=== PATIENT | female | born 1935 | race Caucasian/White ===

== ENCOUNTER 2021-02-16 17:20 | Inpatient (IN) | payer OTHER, SELFPAY ==
[2021-02-16] VITALS (15 sets, daily range): BP systolic 137–194; BP diastolic 72–79; PULSE 51–63; RESP 14–27; TEMP 36.2; O2SAT 96–100; BMI 25.6
--- NOTE | 2021-02-16 | DI.CT.S_ITS ---
PROCEDURE: CT HEAD/BRAIN WO CON INDICATIONS: Chest pain, Hypertensive urgency, possible CVA TECHNIQUE: Noncontrast 4.5 mm thick angled axial sections acquired from the foramen magnum to the vertex, with coronal and sagittal reformats. For radiation dose reduction, the following was used: automated exposure control, adjustment of mA and/or kV according to patient size. COMPARISON: None. FINDINGS: Image quality: Beam hardening artifact from the patient's left middle cranial fossa aneurysm coil material. CSF spaces: The visualized basal cisterns are patent. Bifrontal prominence of the CSF spaces, which may reflect hygromas. Ventricles are normal in size and shape. Brain: No midline shift. No intracranial masses or hemorrhage. Swartz-white matter interface is normal. Skull and face: Calvarium and visualized facial bones are intact, without suspicious lesions. Sinuses: Visualized sinuses and mastoids are clear. IMPRESSION: No acute intracranial abnormality. Dictated by: Joesph Dominguez M.D. on 02/16/2021 at 21:04 Approved by: Joesph Dominguez M.D. on 02/16/2021 at 21:07
--- NOTE | 2021-02-16 17:25 | DI.RAD.S_ITS ---
PROCEDURE: XR CHEST 1V INDICATIONS: chest pain TECHNIQUE: One view of the chest was acquired. COMPARISON: None. FINDINGS: Surgical changes and devices: None. Lungs and pleura: No consolidation, pleural effusions or pneumothorax. Mediastinum: Mediastinal contours appear normal. Heart size is normal. Bones and chest wall: No suspicious bony lesions. Overlying soft tissues appear unremarkable. IMPRESSION: No acute cardiopulmonary abnormality. Dictated by: Joesph Dominguez M.D. on 02/16/2021 at 17:58 Approved by: Joesph Dominguez M.D. on 02/16/2021 at 17:58
[2021-02-16 17:58] LABS: Add Manual Diff / Slide Review NO; Basophils Absolute Auto 100 /uL (0-100); Basophils Percent Auto 1.3 % (0-2); Eosinophils Absolute Auto 300 /uL (0-450); Hematocrit 36.6 % (36-46); Hemoglobin 12.3 g/dL (12.0-16.0); Lymphocytes Absolute Auto 1800 /uL (1100-4500); Lymphocytes Percent Auto 33.6 % (25-40); Mean Corpuscular HGB Conc 33.6 % (30-36); Mean Corpuscular Hemoglobin 31.4 PG (26-34); Mean Corpuscular Volume 93.7 fL (80-100); Monocytes Absolute Auto 400 /uL (0-900); Monocytes Percent Auto 7.3 % (3-14); Neutrophils Absolute Auto 2900 /uL (1500-7000); Neutrophils Percent Auto 52.8 % (50-75); Platelet Count 207 X10^3/uL (150-400); Prothrombin Time 10.7 SECONDS (10.1-12.7); Red Blood Cell Count 3.91 X10^6/uL (4.0-5.2); Red Cell Distribution Width 13.1 % (11.6-14.8); White Blood Cell Count 5.4 X10^3/uL (4.5-11.0)
[2021-02-16 18:01] LABS: PTT Partial Thromboplastin Tim 30 SECONDS (26.4-36.2)
[2021-02-16 18:03] LABS: Alanine Aminotransferase 11 IU/L (<35); Albumin 4.2 g/dL (3.5-5.0); Albumin Globulin Ratio 1.4 (1.0-2.8); Alkaline Phosphatase 69 U/L (38-126); Aspartate Aminotransferase 26 IU/L (14-36); BUN Creatinine Ratio 19.1 (6-22); Bilirubin Total 0.6 mg/dL (0.2-1.3); Blood Urea Nitrogen 18 mg/dL (7-17); Calcium 9.3 mg/dL (8.4-10.2); Carbon Dioxide 27 mmol/L (22-32); Chloride 103 mmol/L (98-107); Creatine Kinase 76 U/L (30-135); Estimated Glomerular Filt Rate 56.6 mL/min (>60); Globulin 2.9 g/dL (1.7-4.1); Glucose 102 mg/dL (80-110); HEMOLYSIS < 15 (0-50); Lipase 131 U/L (23-300); Potassium 4.5 mmol/L (3.4-5.1); Sodium 135 mmol/L (137-145); Total Protein 7.1 g/dL (6.3-8.2)
[2021-02-16 18:15] LABS: NT-proBNP (BNP-Adult 18+) 464 pg/mL (<450); Troponin I < 0.012 ng/mL (0.01-0.034)
--- NOTE | 2021-02-16 18:40 | ED_ITS ---
HPI - Chest Pain General Chief Complaint: Chest Pain Stated Complaint: chest pain, LT arm hurts Time Seen by Provider: 02/16/21 18:31 Source: patient Mode of arrival: Ambulatory History of Present Illness HPI narrative: Patient here with granddaughter. Complaints 2 days off and on substernal chest pressure pain with left arm discomfort. Has had diaphoresis and dyspnea. Not had stress test echocardiogram over 5 years. No previous history of coronary disease. Past history of atrial fibrillation with Coumadin use however has not been on it for many years. Primary care had taken her off of it and placed her on aspirin 325 mg daily. She did take it this morning. Currently no chest pain. Seen by primary care yesterday for left arm discomfort but no chest pain yesterday. Had today off and on. Blood pressure noted. No high blood pressure history in the past. Patient gets very tired and winded when walking and exerting. Related Data Home Medications Medication Instructions Recorded Confirmed aspirin 325 mg tablet 325 mg PO DAILY 02/17/21 02/17/21 polyethylene glycol 3350 17 See Rx Instructions .ROUTE .COMPLEX 02/17/21 02/17/21 gram/dose oral powder (Miralax) Allergies Allergy/AdvReac Type Severity Reaction Status Date / Time Any pain medicine Allergy Uncoded 02/16/21 17:28 codiene AdvReac Mild Vomiting Uncoded 02/16/21 21:01 Review of Systems Review of Systems Narrative: GENERAL: Denies chills, fatigue, malaise, fever, positive sweats. HEENT: Denies sinus pain, ear pain, sore throat RESPIRATORY: Positive dyspnea, negative cough CARDIOVASCULAR: Positive forchest pain, negative palpitations GASTROINTESTINAL: Denies nausea, vomiting, abdominal pain : Denies dysuria, frequency, hematuria MUSCULOSKELETAL: denies muscle or bony pain SKIN: Denies rash, skin lesions NEUROLOGIC: Denies weakness, numbness ROS Unobtainable: All systems reviewed & are unremarkable except as noted in HPI and below Patient History Medical History (Updated 02/16/21 @ 20:39 by CAITLYN Wiggins) Brain aneurysm History of atrial fibrillation History of hyperlipidemia History of hypertension History of myocardial infarction History of pulmonary embolus (PE) Surgical History (Updated 02/16/21 @ 20:38 by CAITLYN Wiggins) History of cholecystectomy History of knee replacement 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 EYES: Pupils equal round No scleral icterus. ENT: Mucous membranes moist. NECK: Trachea midline. CARDIOVASCULAR: Regular rate and rhythm without murmurs RESPIRATORY: Clear to auscultation. Breath sounds equal bilaterally. No wheezes, rales, or rhonchi. GASTROINTESTINAL: Abdomen soft, non-tender EXTREMITIES: No gross deformities. BACK: No flank tenderness. NEURO: AOx4. SKIN: Warm and dry PSYCH: Not anxious, is cooperative Initial Vital Signs Initial Vital Signs: Vital Signs Temperature 97.1 F L 02/16/21 17:25 Pulse Rate 63 02/16/21 17:25 Respiratory Rate 20 02/16/21 17:25 Blood Pressure 194/79 H 02/16/21 17:25 Pulse Oximetry 98 02/16/21 17:25 Course Course Course Narrative: No new issues during course of stay Decision to Admit Date: 02/16/21 Decision to Admit time: 18:44 Orders Ordered: ED Orders 02/16/21 17:25 XR chest 1V Stat EKG-12 Lead Stat 02/16/21 17:35 BNP [NT-proBNP (BNP-Adult 18+)] Stat Complete Blood Count AUTO DIFF Stat Comprehensive Metabolic Panel Stat Lipase Stat Magnesium Stat Partial Thromboplastin Time Stat Prothrombin Time INR Stat TSH w/ Reflex to FT4 Urgent Troponin & CK Cardiac Panel Stat 02/16/21 19:08 COVID19 - ADMIT ([employer] swab/PCR) Stat 02/16/21 19:45 EC echo doppler complete Urgent NM fernanda perf SPECT rest & str Urgent Troponin I Q8H 02/16/21 19:46 Education, smoking cessation ONGOING 02/16/21 20:17 MR stroke Stat Education, smoking cessation ONGOING 02/16/21 20:19 Consult to Physical Therapy Evaluate & Treat 02/16/21 20:45 Urinalysis and Microscopic Stat Urine Culture Stat 02/17/21 03:45 Troponin I Q8H 02/17/21 05:00 Lipid Panel Routine NT-proBNP (BNP-Adult 18+) Routine Prothrombin Time INR Routine Acetaminophen (Acetaminophen 325 Mg Tablet) 650 mg PO Q6HR PRN PRN Reason: Fever/Mild Pain (1-3) Aspirin (Aspirin Ec 81 Mg Tablet) 81 mg PO DAILY [facility] Atorvastatin Calcium (Atorvastatin 20 Mg Tablet) 80 mg PO BEDTIME [facility] Last Admin: 02/16/21 21:13 Dose: 80 mg Documented by: MOSES Clopidogrel Bisulfate (Clopidogrel 75 Mg Tablet) 75 mg PO DAILY [facility] Enoxaparin Sodium (Enoxaparin 40 Mg/0.4 Ml Syringe) 40 mg SUBCUT DAILY [facility] Lactated Ringer's (Lactated Ringers) 1,000 mls @ 60 mls/hr IV CONT [facility] Last Admin: 02/16/21 21:13 Dose: 60 mls/hr Documented by: MOSES Ceftriaxone Sodium 1,000 mg/ (Sodium Chloride) 100 mls @ 200 mls/hr IV Q24H [facility] Lisinopril (Lisinopril 10 Mg Tablet) 10 mg PO DAILY [facility] Morphine Sulfate (Morphine 2 Mg/Ml Inj) 2 mg IV Q5MIN PRN PRN Reason: Chest Pain Naloxone HCl (Naloxone 0.4 Mg/Ml Vial) 0.2 mg IV Q2MIN PRN PRN Reason: Opiate Reversal Nitroglycerin (Nitroglycerin 0.4 Mg Sl Tab) 0.4 mg SL [id number] PRN PRN Reason: Chest Pain Discontinued Medications Ceftriaxone Sodium 2,000 mg/ (Sodium Chloride) 100 mls @ 200 mls/hr IV NOW ONE Stop: 02/16/21 22:44 Last Admin: 02/17/21 00:05 Dose: 200 mls/hr Documented by: HE Nitroglycerin (Nitroglycerin Oint 1 Inch/Gm Oint...G.) 0.5 inch TOP NOW ONE Stop: 02/16/21 18:41 Last Admin: 02/16/21 19:17 Dose: 0.5 inch Documented by: SUSAN Reevaluation(s) Reevaluation #1: Patient and granddaughter understand and agree for admit. Currently no chest pain. Time: 18:44 Consultations Consultation #1: Spoke with hospitalist, Julienne Russell, will admit Time: 19:42 Vital Signs Vital signs: Vital Signs - 8 hr 02/16/21 18:31 02/16/21 19:00 02/16/21 19:01 Pulse Rate 54 L 53 L 53 L Respiratory Rate 24 24 24 Blood Pressure 181/79 H Pulse Oximetry 99 99 99 02/16/21 19:17 02/16/21 19:30 02/16/21 19:31 Pulse Rate 51 L 51 L 51 L Respiratory Rate 17 27 H Blood Pressure 181/79 H 172/73 H Pulse Oximetry 97 100 02/16/21 20:00 02/16/21 20:30 02/16/21 20:31 Pulse Rate 54 L 53 L 54 L Respiratory Rate 22 20 24 Blood Pressure 174/78 H 169/74 H Pulse Oximetry 98 97 98 MDM - Chest Pain Differential Diagnosis Differential diagnosis: Likely stable angina, unstable angina pectoris, atypical chest pain and chest pain Lab Data Result diagrams: 02/16/21 17:35 02/16/21 17:35 Labs: Lab Results 02/16/21 02/16/21 02/16/21 Range/Units 17:35 17:35 17:35 WBC 5.4 (4.5-11.0) X10^3/uL RBC 3.91 L (4.0-5.2) X10^6/uL Hgb 12.3 (12.0-16.0) g/dL Hct 36.6 (36-46) % MCV 93.7 (80-100) fL MCH 31.4 (26-34) PG MCHC 33.6 (30-36) % RDW 13.1 (11.6-14.8) % Plt Count 207 (150-400) X10^3/uL Neut % (Auto) 52.8 (50-75) % Lymph % (Auto) 33.6 (25-40) % [place] % (Auto) 7.3 (3-14) % Eos % (Auto) 5.0 H (2-4) % Baso % (Auto) 1.3 (0-2) % Neut # (Auto) 2900 (9210-7872) /uL Lymph # (Auto) 1800 (2092-6622) /uL [place] # (Auto) 400 (0-900) /uL Eos # (Auto) 300 (0-450) /uL Baso # (Auto) 100 (0-100) /uL PT 10.7 (10.1-12.7) SECONDS INR 1.0 (0.9-1.3) APTT 30 (26.4-36.2) SECONDS D-Dimer (<230) ng/mL Sodium 135 L (137-145) mmol/L Potassium 4.5 (3.4-5.1) mmol/L Chloride 103 (98-107) mmol/L Carbon Dioxide 27 (22-32) mmol/L BUN 18 H (7-17) mg/dL Creatinine 0.94 (0.52-1.04) mg/dL Estimated GFR 56.6 L (>60) mL/min BUN/Creatinine Ratio 19.1 (6-22) Glucose 102 (80-110) mg/dL Calcium 9.3 (8.4-10.2) mg/dL Magnesium 2.0 (1.6-2.3) mg/dL Total Bilirubin 0.6 (0.2-1.3) mg/dL AST 26 (14-36) IU/L ALT 11 (<35) IU/L Alkaline Phosphatase 69 (38-126) U/L Total Creatine Kinase 76 (30-135) U/L CK-MB (CK-2) TNP CK-MB (CK-2) Rel Index TNP Troponin I < 0.012 (0.01-0.034) ng/mL NT-Pro-B Natriuret Pep 464 H (<450) pg/mL Total Protein 7.1 (6.3-8.2) g/dL Albumin 4.2 (3.5-5.0) g/dL Globulin 2.9 (1.7-4.1) g/dL Albumin/Globulin Ratio 1.4 (1.0-2.8) Lipase 131 (23-300) U/L TSH (0.47-4.68) uIU/mL SARS-CoV-2 (PCR) (Negative) 02/16/21 02/16/21 02/16/21 Range/Units 17:35 17:35 19:08 WBC (4.5-11.0) X10^3/uL RBC (4.0-5.2) X10^6/uL Hgb (12.0-16.0) g/dL Hct (36-46) % MCV (80-100) fL MCH (26-34) PG MCHC (30-36) % RDW (11.6-14.8) % Plt Count (150-400) X10^3/uL Neut % (Auto) (50-75) % Lymph % (Auto) (25-40) % [place] % (Auto) (3-14) % Eos % (Auto) (2-4) % Baso % (Auto) (0-2) % Neut # (Auto) (2737-2251) /uL Lymph # (Auto) (5997-5802) /uL [place] # (Auto) (0-900) /uL Eos # (Auto) (0-450) /uL Baso # (Auto) (0-100) /uL PT (10.1-12.7) SECONDS INR (0.9-1.3) APTT (26.4-36.2) SECONDS D-Dimer 558 H (<230) ng/mL Sodium (137-145) mmol/L Potassium (3.4-5.1) mmol/L Chloride (98-107) mmol/L Carbon Dioxide (22-32) mmol/L BUN (7-17) mg/dL Creatinine (0.52-1.04) mg/dL Estimated GFR (>60) mL/min BUN/Creatinine Ratio (6-22) Glucose (80-110) mg/dL Calcium (8.4-10.2) mg/dL Magnesium (1.6-2.3) mg/dL Total Bilirubin (0.2-1.3) mg/dL AST (14-36) IU/L ALT (<35) IU/L Alkaline Phosphatase (38-126) U/L Total Creatine Kinase (30-135) U/L CK-MB (CK-2) CK-MB (CK-2) Rel Index Troponin I (0.01-0.034) ng/mL NT-Pro-B Natriuret Pep (<450) pg/mL Total Protein (6.3-8.2) g/dL Albumin (3.5-5.0) g/dL Globulin (1.7-4.1) g/dL Albumin/Globulin Ratio (1.0-2.8) Lipase (23-300) U/L TSH 2.87 (0.47-4.68) uIU/mL SARS-CoV-2 (PCR) Negative (Negative) Imaging Data Chest x-ray: Radiologist's Impression: [address] [address] XRay Report Signed Patient: Kay Robles MR#: [id number] : 1935 Acct:[id number] Age/Sex: 85 / F Date of Service: 02/16/21 Loc: ED Accession Number: [id number] ?? Procedure: XR chest 1V Ordering Provider: Adan Victor D.O. PROCEDURE:? XR CHEST 1V ? INDICATIONS:? chest pain ? TECHNIQUE:? One view of the chest was acquired.? ? COMPARISON:? None. ? FINDINGS:? ? Surgical changes and devices:? None.? ? Lungs and pleura:? No consolidation, pleural effusions or pneumothorax.? ? Mediastinum:? Mediastinal contours appear normal.? Heart size is normal.? ? Bones and chest wall:? No suspicious bony lesions.? Overlying soft tissues appear unremarkable.? ? IMPRESSION:? No acute cardiopulmonary abnormality. ? ? Dictated by: Joesph Dominguez M.D. on 02/16/2021 at 17:58 ? ? Approved by: Joesph Dominguez M.D. on 02/16/2021 at 17:58 ? ECG Data Interpretation: Sinus bradycardia rate [address] elevation or depression MDM Narrative Medical decision making narrative: Appropriate for admission. At this time patient and family understand no bed availability for transfer. Will need to keep in department until bed available upstairs. Discharge Plan Departure Patient Disposition: Admitted as Observation Clinical Impression: Chest pain Admit Date/Time: 02/16/21 20:44 Admit Provider: Julienne Russell
[2021-02-16] MEDS: NITROGLYCERIN OINT 1 INCH/GM OINT...G. 0.5 INCH TOP (19:17)
--- NOTE | 2021-02-16 20:21 | P.HP_ITS ---
History of Present Illness History of Present Illness Date Patient Seen: 02/16/21 Time Patient Seen: 19:49 Chief complaint: chest pain, LT arm hurts Narrative: Kay Robles is a 85 female with a history of brain aneurysm with coil placed, pulmonary embolism, NM, atrial fibrillation on only aspirin, hyperlipidemia, hypertension who is here with granddaughter.? Complaints 2 days off and on substernal chest pressure pain lasting 10 min at a time with left arm dis comfort.? The patient also notes ongoing dizziness upon standing, and during standing. Patient's granddaughter notes increased confusion and impaired cognitive function over the last week or so. Patient also complains of diaphoresis and dyspnea with chest pressure, gets very tired and winded when w alking and on exertion.? Not had stress test echocardiogram over 5 years.?Past history of atrial fibrillation with Coumadin use however has not been on it for many years.? Primary care had taken her off of it and placed her on aspirin 325 mg daily.? She did take it this morning.? Upon admit interview patient is having no chest pain.? Seen by primary care yesterday for left arm discomfort but no ch est pain yesterday.? Patient states that she takes only a laxative daily and no longer take Lipitor, Coumadin, nor blood pressure medication. Patient denies dysuria frequency, urgency, but does have positive odorous urine, denies hematemesis, hematuria, does have occasional bleeding from hemorrhoids due to chronic constipation. Patient presented to the ED with a BP of 194/79, upon admit temp 97.1?, BP 181/79, HR 51, R 24, O2 saturation 99% on room air patient is resting comfortably in bed without chest pain at this time. Patient's CBC-WNL, chemistries sodium 135, GFR 56.6 all other chemistry and liver panel WNL, troponin WNL, proBNP 464, chest x-ray is negative for acute cardiopulmonary processes. Patient's EKG demonstrated sinus bradycardia with a rate of 59, left axis deviation minimal voltage criteria for LVH, nonspecific ST abnormality. Heart Score: 4 moderate, NIH:0 patient to be admitted for chest pain rule out with hypertensive urgency versus stroke. 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 Tobacco & Substance use: Patient notes hx of heavy alcohol intake quitting about 2-3 years ago 100% proof vodka Smoking Status Never smoker Patient uses no recreational substances Meds Home Medications and Allergies Allergies Allergy/AdvReac Type Severity Reaction Status Date / Time Any pain medicine Allergy Uncoded 02/16/21 17:28 codiene AdvReac Mild Vomiting Uncoded 02/16/21 21:01 Review of Systems Review of Systems Narrative: All 12 point systems reviewed with the patient and are negative except otherwise documented. Exam Vital Signs (past 8 hours): - 02/16/21 17:25 02/16/21 18:31 02/16/21 19:00 Temperature 97.1 F L Pulse Rate 63 54 L 53 L Respiratory Rate 20 24 24 Blood Pressure 194/79 H Pulse Oximetry 98 99 99 02/16/21 19:01 02/16/21 19:17 02/16/21 19:30 Temperature Pulse Rate 53 L 51 L 51 L Respiratory Rate 24 17 Blood Pressure 181/79 H 181/79 H Pulse Oximetry 99 97 02/16/21 19:31 02/16/21 20:00 Temperature Pulse Rate 51 L 54 L Respiratory Rate 27 H 22 Blood Pressure 172/73 H 174/78 H Pulse Oximetry 100 98 Oxygen Delivery Method Room Air Narrative Exam Narrative: General: Patient is a well-developed, well-nourished elderly female in no distress at this time. HEENT: Normocephalic, atraumatic, extraocular muscles intact, oral pharynx is clear and mucous membranes are dry. Neck is supple and symmetric, trachea is midline, no adenopathy, no thyroid enlargement, nontender, no masses palpated. Negative for JVD Chest: Normal AP diameter and contour without kyphoscoliosis, no nasal flaring, retractions, or tachypneic labored Lungs: Auscultation of all lung blanco are clear without adventitious sounds, wheezes, rhonchi, or rales. Cardio: S1 & S2 with regular rate and rhythm without murmur, rubs, or gallops, no carotid bruit, no cardiac pulsations present. Abdomen: Soft nontender, negative for organomegaly, or masses. Bowel sounds are present in all 4 quadrants without guarding or rebound, no CVA tenderness. Musculoskeletal: Muscle strength and tone are equal within normal limits, no deformity, crepitus, effusions, cyanosis, clubbing or edema present. Full range of motion intact radial and pedal pulses are normal. Skin: Warm dry and intact without rashes, ulcerations or petechiae. Neuro: Alert and orientated x3, strength is +5/5 in all extremities, sensation to touch intact, no gross deficits noted of cranial nerves. Psych: Patient has a well-kept appearance, appropriate affect, mental status attitude thought context and judgment are appropriate for age. Objective Labs Result Diagrams: 02/16/21 17:35 02/16/21 17:35 Labs: Laboratory Results - last 24 hr 02/16/21 02/16/21 02/16/21 17:35 17:35 17:35 WBC 5.4 RBC 3.91 L Hgb 12.3 Hct 36.6 MCV 93.7 MCH 31.4 MCHC 33.6 RDW 13.1 Plt Count 207 Neut % (Auto) 52.8 Lymph % (Auto) 33.6 [place] % (Auto) 7.3 Eos % (Auto) 5.0 H Baso % (Auto) 1.3 Neut # (Auto) 2900 Lymph # (Auto) 1800 [place] # (Auto) 400 Eos # (Auto) 300 Baso # (Auto) 100 PT 10.7 INR 1.0 APTT 30 Sodium 135 L Potassium 4.5 Chloride 103 Carbon Dioxide 27 BUN 18 H Creatinine 0.94 Estimated GFR 56.6 L BUN/Creatinine Ratio 19.1 Glucose 102 Calcium 9.3 Magnesium 2.0 Total Bilirubin 0.6 AST 26 ALT 11 Alkaline Phosphatase 69 Total Creatine Kinase 76 CK-MB (CK-2) TNP CK-MB (CK-2) Rel Index TNP Troponin I < 0.012 NT-Pro-B Natriuret Pep 464 H Total Protein 7.1 Albumin 4.2 Globulin 2.9 Albumin/Globulin Ratio 1.4 Lipase 131 Assessment & Plan Assessment & Plan narrative: Kay Robles is a 85 female with a history of brain aneurysm with coil placed, pulmonary embolism, NM, atrial fibrillation on only aspirin, hyperlipidemia, hypertension. Who has not taken any medication management for several years. Complaints 2 days off and on substernal chest pressure pain lasting 10 min at a time with left arm discomfort.?Patient's granddaughter notes increased confusion and impaired cognitive function over the last week or so. patient to be admitted for chest pain rule out with hypertensive urgency versus stroke. 1. Chest pain, radiating into left arm with dyspnea and diaphoresis on exertion, acute, in the setting of hypertensive urgency, acute, and coginitive impairment,acute, with a history of NM, hypertension, hyperlipidemia,and atrial fibrillation, chronic, present on admission -Chest pain verses Stroke rule out verses Heart Failure exacerbation-as patient has not been on medication management for several years will complete risk stratification for both. -initial presenting BP 194/79, 181/79, 172/73 -BNP 464 -heart score of 4 moderate, NIH is 0 -ordered stress, echo, head CT, head MRI -telemedicine, Plavix 75 mg, ASA 81 mg, Lipitor 80 mg, Lovenox 40 mg -Orthostatic V/S Q shift, start lisinopril 10mg tomorrow -UA to rule out UTI, lipid panel, TSH, trend troponin -gentle rehydration- LR @60cc/hr 2. Constipation, chronic, present on admission -Continue patient's mirilax 3. History of pulmonary embolus, chronic, present on admission -order D-dimer Code status:Full Surrogate decision maker: Lul Gruber/ Partner Thad Saulhenrik COVID PCR:Negative COVID vaccination: Unknown DVT/VTE prophylaxis:LOvenox 40mg & SCD's Disposition: Admitted for observation, expected length of stay less than 2 midnights I have utilized all available immediate resources to obtain, update, or review the patient's current medications. I confirmed that the patient's advanced care plan is present, Code status is documented and/or surrogate decision maker is listed in the patient's medical record. Time Spent With Patient Critical Care time: I spent a total of [] minutes of critical care time on this patient's care today; this time is exclusive of procedural time. Scores GCS [place] coma scale eye opening: Spontaneous [place] coma scale verbal response: Orientated [place] coma scale motor response: Obey commands [place] coma scale total score: 15 NIHSS Level of Conciousness: Alert, keenly responsive Ask month/age: Answers both questions correctly. Open/close eyes, close hand: Performs both tasks correctly Best gaze horizontal: Normal Visual blanco: No visual loss Facial palsy: Normal symetrical movement Left arm drift: No drift for full 10 sec Right arm drift: No drift for full 10 sec Left leg drift: No drift for full 5 sec Right leg drift: No drift for full 5 sec Limb ataxia: Absent Sensory on face/arms/legs: Normal, no sensory loss Best language: No aphasia, normal Dysarthria: Normal Extinction or inattention: No abnormality Total NIH Stroke scale score: 0
[2021-02-16 20:50] LABS: Appearance Urine UA SL CLOUDY; Bilirubin Urine UA NEGATIVE (NEGATIVE); Color Urine UA YELLOW; Glucose Urine UA NEGATIVE (Negative); Ketones Urine UA NEGATIVE (NEGATIVE); Leukocyte Esterase Urine UA 1+ (NEGATIVE); Nitrite Urine UA POSITIVE (Negative); Occult Blood Urine UA TRACE-INTACT (Negative); Protein Urine UA NEGATIVE (Negative); Urobilinogen Urine UA 0.2 E.U./dL (0.2)
[2021-02-16 21:00] LABS: pH Urine UA 6.5 (4.5-8.0)
[2021-02-16 21:03] LABS: Bacteria Urine Many (>30); Culture Indicated Urine Specimen Cultured; RBC Urine 1-5/HPF (0-5/HPF); WBC Urine 5-10/HPF (0-5/HPF)
[2021-02-16 21:03] LABS: COVID19 - ADMIT (NP swab/PCR) Negative (Negative)
[2021-02-16] MEDS: LACTATED RINGERS 1,000 ML 60 ML IV (21:13)
[2021-02-16] MEDS: ATORVASTATIN 20 MG TABLET 80 MG PO (21:13)
[2021-02-16 21:35] LABS: TSH w/ Reflex to FT4 2.87 uIU/mL (0.47-4.68)
[2021-02-16 21:46] LABS: D Dimer 558 ng/mL (<230)
--- NOTE | 2021-02-16 22:43 | DI.CT.S_ITS ---
PROCEDURE: CT ANGIO CHEST PE PROTOCOL INDICATIONS: Elevated Dimer TECHNIQUE: After the administration of intravenous contrast, 2 mm thick sections acquired from the pulmonary apices to the posterior costophrenic angles. 3-dimensional maximum intensity projection (MIP) coronal and sagittal reformats were then acquired through the thorax. For radiation dose reduction, the following was used: automated exposure control, adjustment of mA and/or kV according to patient size. COMPARISON: None. FINDINGS: Image quality: Excellent. Pulmonary arteries: Pulmonary arteries are normal in size, and demonstrate no intraluminal filling defects to suggest central pulmonary embolism. Lungs and pleura: Lungs are clear. No pleural effusions or pneumothorax. Central and peripheral airways are patent. Mediastinum: Heart size is normal, without pericardial effusion. Atherosclerotic calcifications noted in the aorta, great vessels and coronary vasculature. No mediastinal or hilar adenopathy. Thoracic aorta is normal in caliber and enhancement. Esophagus is normal in caliber, without hiatal hernia. Bones and chest wall: No suspicious bony lesions. Ribs and thoracic spine appear intact throughout. Thyroid gland is normal. No axillary or supraclavicular adenopathy. Abdomen: Visualized upper abdominal solid organs appear normal in the early arterial phase of enhancement. IMPRESSION: 1. No pulmonary embolus. 2. No lung consolidation or pleural effusions. Dictated by: Chela Potter MD, PhD on 02/16/2021 at 23:09 Approved by: Chela Potter MD, PhD on 02/16/2021 at 23:12
[2021-02-17] VITALS (13 sets, daily range): BP systolic 83–159; BP diastolic 48–74; PULSE 56–75; RESP 14–18; TEMP 35.9–36.8; O2SAT 96–99
[2021-02-17] MEDS: cefTRIAXone 2,000 MG in SODIUM CHLORIDE 0.9% 100 ML 200 ML IV (00:05)
[2021-02-17] MEDS: NITROGLYCERIN 0.4 MG SL TAB SL (02:59)
--- NOTE | 2021-02-17 03:04 | PC.NURSE ---
Addendum entered by Padmini Gray R.N. 02/17/21 06:08: Pain improved after nitroglycerin given, b/p did drop francis 105/40. patient was placed on 3 L NC and appears to be feeling better. No Morphine given, per patient she is allergic to it. Pt is alert and oriented but does have some periods of forgetfullness. pt NPO due to stress test this am. Original Note: Pt complaing of chest pain, radiating to the left arm, c/o of having a hard time breathing, 1 dose of nitroglycerin given
[2021-02-17 04:35] LABS: Troponin I < 0.012 ng/mL (0.01-0.034)
[2021-02-17 06:34] LABS: INR 1.1 (0.9-1.3); Prothrombin Time 11.8 SECONDS (10.1-12.7)
[2021-02-17 06:42] LABS: Cholesterol 182 mg/dL (140-199); HDL Cholesterol 35 mg/dL (40-60); LDL Cholesterol Calculated 120 mg/dL (<100); Triglycerides 135 mg/dL (35-150)
[2021-02-17 06:49] LABS: NT-proBNP (BNP-Adult 18+) 538 pg/mL (<450)
[2021-02-17 06:52] LABS: Troponin I < 0.012 ng/mL (0.01-0.034)
[2021-02-17] MEDS: cefTRIAXone 1,000 MG in SODIUM CHLORIDE 0.9% 100 ML 200 ML IV (09:13)
[2021-02-17] MEDS: ENOXAPARIN 40 MG/0.4 ML SYRINGE SUBCUT (09:14)
[2021-02-17] MEDS: ACETAMINOPHEN 325 MG TABLET 650 MG PO ×2 (10:20→23:20)
[2021-02-17] MEDS: CLOPIDOGREL 75 MG TABLET PO (10:21)
[2021-02-17] MEDS: ASPIRIN EC 81 MG TABLET PO (10:21)
--- NOTE | 2021-02-17 11:30 | PT.IIE ---
Medical History (Last Updated 02/16/21 @ 20:39 by Julienne Russell, [facility]) Brain aneurysm History of atrial fibrillation History of hyperlipidemia History of hypertension History of myocardial infarction History of pulmonary embolus (PE) Physical Therapy Inpatient Evaluation/Re-Eval M1 PT/OT-IP Prior Functional Status Start: 02/17/21 13:13 Freq: NEEDED Status: Active Protocol: Document 02/17/21 11:30 AB (Rec: 02/17/21 13:27 AB [id number]) Medical Review Prior Functional Status Medical History Reviewed Yes Communication able to make needs known Mobility and Gait pt stated that she is modified independent with all mobilities and ambulation without AD but usually furniture cruises. stated that she had dizziness for 1-2 years already, does not go out of the house much and if she does, she usually holds on to her quartz miner for assistance. Social History Household Members other Living Arrangements House Number of Floors (Floors) Two Floors Number of Stairs To Enter/Railing? pt will stay on first level of the house has 3 steps with wide B rails and can only hold on to one rail at a time. Home Environment Standard Height Toilet,Walk in Shower,Built-In Shower Seat Home Equipment Front Wheel Walker,Hand Held Shower Additional Social History Comment pt stated that she plans to go to her grand daughter's house and grand daughter stated that she works from home and will be able to assist pt M2 PT-IP Current Condition Start: 02/17/21 13:13 Freq: NEEDED Status: Active Protocol: Document 02/17/21 11:30 AB (Rec: 02/17/21 13:27 AB [email or web address]) Physical Therapy Current Condition Current Condition Evaluation Date 02/17/21 Treatment Diagnosis chest pain; difficulty in walking Onset Date 02/16/21 M3 PT-IP Subjective Start: 02/17/21 13:13 Freq: NEEDED Status: Active Protocol: Document 02/17/21 11:30 AB (Rec: 02/17/21 13:27 AB [email or web address]) Subjective Physical Therapy Visit Type Type Initial Evaluation Visit Start Time 11:30 Visit Stop Time 12:00 Total Visit Minutes 30 Number of NUCLEAR POWERPLANT SUPERVISOR Visits 0 Physical Therapy Visit Comments Patient Comments agreed to do PT but stated that she needs assistance since she cannot move her legs and she has dizziness when she gets up. M4 PT-IP Mobility and Gait Start: 02/17/21 13:13 Freq: NEEDED Status: Active Protocol: Document 02/17/21 11:30 AB (Rec: 02/17/21 13:27 AB [id number]) PT-Bed Mobility Assessment Supine to Sit Supine to Sit Maximum Assistance,1 Person Assistance Scooting Scooting to Edge of Bed Moderate Assistance PT-Transfer Assessment Sit to and From Stand Sit to and from Stand Moderate Assistance,Maximum Assistance,1 Person Assistance ,Use of Upper Extremities Equipment Transfer Assistive Device Front Wheeled Walker Orthotic/Prosthetic Devices or Brace: No Transfers Transfer Destination Toilet Transfer Technique ambulated Transfer Ability Level of Assist Moderate Assistance,1 Person Assistance,Use of Upper Extremities Comments Mobility Comments BP monitored. BP in supine 105/57. completed supine to sit max A and max cues. pt stated that she cannot move her legs. pt was able to sit on EOB CGA. BP sitting. 119/ 59. c/o dizziness. pt requesting to use the toilet. completed sit to stand mod to max A and max cues. able to stand mod A using FWW for support. BP checked: 99/57. ambulated to the toilet using FWW mod A and cues with LOB requiring mod A for steadiness . NAC in room to assist. pt completed ambulation from the toilet using FWW to the chair mod A. positioned on chair. BP in chair. 90/54. c/o dizziness. NAC to inform nurse regarding orthostatic. MD came in to see pt and is aware of pt's BP. call light and table positioned next to pt. Left pt with MD. Gait Assessment Gait Gait Assistance Required: Moderate Assistance,1 Person Assist Distance (Feet) 10 Able to Maintain Weight Bearing Status Yes During Gait Assistive Devices Assistive Device Gait Belt,Front Wheeled Walker Orthotic/Prosthetic Devices or Brace: No Gait Deviations General Gait Pattern Decreased Stride Length, Decreased Feet Clearance Factors Limiting Gait Function Factors Limiting Gait Function Decreased Activity Tolerance, Decreased Strength,Difficulty Following Directions,Poor Balance,Poor Safety Awareness PT-Balance Assessment Sitting Balance and Reactions Static Sitting Balance Ability Good Dynamic Sitting Balance Ability Fair Standing Balance and Reactions Static Standing Balance Ability Fair Dynamic Standing Balance Ability Poor Device Used FWW M5 PT-IP Objective Assessments Start: 02/17/21 13:13 Freq: NEEDED Status: Active Protocol: Document 02/17/21 11:30 AB (Rec: 02/17/21 13:27 AB [id number]) Orientation Orientation/Cognition Level of Alertness Alert Orientation Name Safety Awareness Decreased Safety Awareness Memory Description Short Term Impaired Gross Range of Motion Lower Extremity ROM Assessment Within Functional Limits Impairments c/o LE tightness with increase muscle guarding with movement Strength Comments Strength Comments instructed pt to obtain MMT on BLE but pt tends to move LE upwards instead of pushing when instructed; pt stated that she cannot move her legs at all and that she needs assistance Muscle Tone Muscle Tone WNL Yes M6 PT-IP Treatment Start: 02/17/21 13:13 Freq: NEEDED Status: Active Protocol: Document 02/17/21 11:30 AB (Rec: 02/17/21 13:27 AB [email or web address]) Physical Therapy Treatment Education Education Provided Safety M7 PT-IP Assessment and Plan Start: 02/17/21 13:13 Freq: NEEDED Status: Active Protocol: Document 02/17/21 11:30 AB (Rec: 02/17/21 13:27 AB [email or web address]) PT Summary Assessment and Plan Potential Rehabilitation Potential Good Status of Condition at Evaluation Evolving Summary Impairments Pain,ROM,Strength,Balance, Coordination,Sensation,Tone, Cognition,Bed Mobility, Transfers,Gait,Activity Tolerance Assessment Summary pt requiring mod to max A for mobility and will need 24/7 assist. will continue to assess progress but at this time may require SNF rehab. Grand daughter in room and stated that she will be able to assist pt. Will have to conduct caregiver training when appropriate as well as stair climbing training. Goals Bed Mobility Goal Standby Assistance Transfer Goal Standby Assistance,Front Wheeled Walker Gait Goal Standby Assistance,Front Wheel Walker Gait Distance 150 Other Goals up/down 3 steps 1 rail CGA Days to Meet Goals 10 Frequency of Treatment Frequency Of Treatment Once a Day Treatment Plan Physical Therapy Treatment Plan Bed Mobility Training,Transfer Training,Gait Training, Therapeutic Exercise,Balance Retraining,Discharge Planning, Neuromuscular Re-ed, Coordination Retraining,Manual Therapy Precautions Other Precautions falls Recommendations To Nursing Amount of Assist Needed 1 Person Assist Discharge Recommendations PT Discharge Recommendations Home with 24/7 Assist Available,Home Health,SNF Rehab,Home vs SNF Transportation Needs at Discharge Private Vehicle,Wheelchair/ Cabulance
--- NOTE | 2021-02-17 12:01 | CM.DANOTE ---
DCP/Assessment: Reviewed chart. Patient is a 85yr old female admitted [facility] with [facility]. PCP is [facility]. Primary payor is 1[facility]. Met with patient this AM explained CM/SW role. Patient resting in bed alert and oriented at time of visit. Patient reports that she was driving to [employer] from [place] when she started having chest/hand pain. Patient in [place] visiting her granddaughter/Nan. Patient reports that she is completely I with all ADL's. Patient resides with her significant other/Thad in [place]. Currently patient with stress test pending. Patient hopes to d/c from [facility] once w/u completed. Patient reports that she can go to her granddaughter's at time of d/c. Notified patient that CM team would continue to follow. P: Home with family once medically stable. LARRY Discharge Planning/Care Management CM Discharge Assessment Start: 02/17/21 11:17 Freq: Status: Active Protocol: Document 02/17/21 11:18 [facility] (Rec: 02/17/21 12:01 [facility] [id number]) Discharge Planning Assessment Assigned Lsw CHELSIE Vergara Contact Information Nan Stephensonenter ) granddaughter Advance Directives? Yes Advance Directives on File No History Provided By Patient,Medical Record Prior Living Arrangements House Household Members other Comment Patient resides with significant other/Thad in [place]. Type of transporation used prior to Drives own vehicle admit Independent with ADL's Yes Is patient alert and oriented? Yes Caregiver for Another No Barriers to Discharge No Discharge Plan Home Transportation Arrangement Family to provide transport. Whiteboard Updated in Patient Room with Yes name and ext. # of Lsw Review Status In Process Next Review Type Continued Stay Review
--- NOTE | 2021-02-17 12:30 | DI.RAD.S_ITS ---
PROCEDURE: XR SHOULDER LT MIN 2V INDICATIONS: shoulder pain TECHNIQUE: 3 views of the shoulder were acquired. COMPARISON: None. FINDINGS: Bones: No fractures or dislocations. No suspicious bony lesions. Visualized ribs appear intact. Soft tissues: No suspicious soft tissue calcifications. IMPRESSION: No evidence acute bony abnormality of the left shoulder. If clinical suspicion and/or symptoms persist, further assessment with repeat plain films, or advanced imaging (e.g., CT, MRI, or bone scan) may be helpful for further assessment. Dictated by: Maynor Phelan M.D. on 02/17/2021 at 12:56 Approved by: Maynor Phelan M.D. on 02/17/2021 at 12:56
--- NOTE | 2021-02-17 12:48 | DI.ECHO.S_ITS ---
Reason For Study: CHEST PAIN : :Ordering Physician: AMIRA, : :CHARMAINE Performed By: Coral Pal : :Referring: CHARMAINE COLLIER : + + Interpretation Summary The left ventricle is normal in size and wall thickness. The ejection fraction is estimated to be 60-65%. Left ventricular wall motion is normal. The right ventricle is normal in size and function. The right ventricular systolic pressure is estimated to be at least 25 mmHg based on an estimated right atrial pressure of 3 mm Hg. No significant valvular disease. No prior studies for comparison Procedure: A two-dimensional transthoracic echocardiogram with color flow and Doppler was performed. The study quality was technically adequate. There is no prior echocardiogram noted for this patient. The patient was in sinus rhythm with heart rates between 55-65 bpm during the exam. Left Ventricle: The left ventricle is normal in size and wall thickness. The ejection fraction is estimated to be 60-65%. Left ventricular wall motion is normal. Indeterminant diastolic function. Right Ventricle: The right ventricle is normal in size and function. Atria: The left atrium is mildly dilated. Right atrial size is normal. There is no Doppler evidence for an interatrial shunt. Mitral Valve: There is mild mitral annular calcification. There is trace mitral regurgitation. Aortic Valve: The aortic valve is grossly normal. There is no aortic valve stenosis. No aortic regurgitation is present. Tricuspid Valve: The tricuspid valve is normal in structure and function. There is mild tricuspid regurgitation. The right ventricular systolic pressure is estimated to be at least 25 mmHg based on an estimated right atrial pressure of 3 mm Hg. Pulmonic Valve: The pulmonic valve is not well visualized. There is no pulmonic valvular regurgitation. Great Vessels: The aortic root is normal size. The ascending aorta is at the upper limits of normal in size. The IVC is of normal diameter and collapses greater than 50% with a sniff. This suggests a low right atrial pressure of 3 mm Hg. Pericardium/ Pleura There is no pericardial effusion. There is no pleural effusion. MMode/2D Measurements & Calculations LVIDd: 4.5 cm LVOT diam: 2.2 cm LVIDs: 2.9 cm Ao root diam: 3.2 cm FS: 35.5 % asc Aorta Diam: 3.4 cm IVSd: 0.96 cm Ao Arch Diam (Prox Trans): 3.0 cm LVPWd: 0.91 cm LV mckinley. diameter/BSA (cm/m^2): 2.7 LV sys. diameter/BSA (cm/m^2): 1.8 LA A2 area: 18.7 cm2 RA long axis: 4.0 cm LA A4 area: 17.6 cm2 RA area: 14.1 cm2 LA length (vol): 5.0 cm RA vol: 42.4 ml LA vol: 55.5 ml RA : 25.8 ml/m2 LA vol index: 33.8 ml/m2 IVC diam: 1.4 cm RVD1 (basal): 3.2 cm TAPSE: 2.8 cm Doppler Measurements & Calculations Ao V2 max: 107.8 cm/sec LVOT Max Elver: 101.7 cm/sec Ao V2 mean: 70.3 cm/sec LV V1 max P.1 mmHg Ao max P.7 mmHg LV V1 VTI: 20.1 cm Ao mean P.3 mmHg JAZMIN(I,D): 3.2 cm2 Ao V2 VTI: 23.5 cm JAZMIN(V,D): 3.6 cm2 sev ratio: 0.85 JAZMIN indexed to BSA (cm^2/m^2): 2.0 MV E max elver: 76.2 cm/sec TR max elver: 237.4 cm/sec MV A max elver: 112.9 cm/sec TR max P.5 mmHg MV E/A: 0.67 PA V2 max: 90.6 cm/sec Med Peak E' Elver: 6.6 cm/sec PA V2 mean: 60.6 cm/sec E/E' med: 11.5 PA mean P.6 mmHg Lat Peak E' Elver: 4.2 cm/sec PA pr(Accel): 32.8 mmHg E/E' lat: 17.9 E/e' average: 14.7 MV dec time: 0.37 sec SV(LVOT): 76.1 ml Reading Physician:PM
--- NOTE | 2021-02-17 17:03 | DI.RAD.S_ITS ---
PROCEDURE: XR CHEST 1V INDICATIONS: chest pain TECHNIQUE: One view of the chest was acquired. COMPARISON: [facility], CR, XR CHEST 1V, 02/16/2021, 17:28. FINDINGS: Surgical changes and devices: None. Study is limited by rotation and low lung volumes. Lungs and pleura: Lungs are clear. No pleural effusions or pneumothorax. Mediastinum: Mediastinal contours appear normal. Heart size is normal. Bones and chest wall: No suspicious bony lesions. Overlying soft tissues appear unremarkable. IMPRESSION: No acute cardiopulmonary findings Approved by: Guevara Castellanos M.D. on 02/17/2021 at 17:07
--- NOTE | 2021-02-17 17:03 | PC.NURSE ---
Event note: Patient c/o sudden chest pain, Dr. Troy and this RN at bedside. Stat EKG and Trop ordered. VSS 168/81, RR 20, HR 77, 99% on RA. Chest pain described at sharp, non radiating, non provoked, lasting approx 45 seconds. No chest pain post episode.
[2021-02-17 18:28] LABS: Creatine Kinase 85 U/L (30-135)
[2021-02-17 18:41] LABS: Troponin I < 0.012 ng/mL (0.01-0.034)
--- NOTE | 2021-02-17 18:52 | P.PN_ITS ---
Subjective Subjective Date Patient Seen: 02/17/21 Interval history: The patient is an 85-year-old female who was admitted to the hospital with chest pain. She reports recurrent chest pain today, she states it was severe 8/10 in intensity, came on abruptly and subsequently resolved. The patient had minimal shortness of breath. She has also been found to be orthostatic earlier today. Her lisinopril as such has been held. Patient complains of left shoulder pain. That has been present for some time. She is oxygenating well. Exam Vital Signs (past 8 hours): - 02/17/21 11:45 02/17/21 15:28 Temperature 97.6 F 97.4 F L Pulse Rate 61 62 Pulse Rate [Orthostatic Lying] 61 Pulse Rate [Orthostatic Sitting] 64 Pulse Rate [Orthostatic Standing] 75 Respiratory Rate 18 16 Blood Pressure 105/57 L 138/51 L Blood Pressure [Orthostatic Lying] 105/57 L Blood Pressure [Orthostatic Sitting] 119/59 L Blood Pressure [Orthostatic Standing] 99/57 L Pulse Oximetry 97 99 Oxygen Delivery Method Room Air Oxygen Flow Rate 0 Narrative Exam Narrative: Anxious elderly female lying in bed Resp Other: Lungs clear to auscultation Cardio Other: Cardiac exam: Regular rate and rhythm normal S1-S2 GI Other: Abdomen: Soft nontender nondistended Extrem Other: Extremities: No edema Objective ECG Impression: ECG reveals normal sinus rhythm, minimal voltage criteria for LVH, no acute ST T wave abnormality Labs Result Diagrams: 02/16/21 17:35 02/16/21 17:35 Labs: Laboratory Results - last 24 hr 02/16/21 02/16/21 02/16/21 17:35 17:35 19:08 PT INR D-Dimer 558 H Total Creatine Kinase CK-MB (CK-2) CK-MB (CK-2) Rel Index Troponin I NT-Pro-B Natriuret Pep Triglycerides Cholesterol LDL Cholesterol, Calc HDL Cholesterol TSH 2.87 Urine Color Urine Appearance Urine pH Ur Specific Hamel Urine Protein Urine Glucose (UA) Urine Ketones Urine Occult Blood Urine Nitrate Urine Bilirubin Urine Urobilinogen Ur Leukocyte Esterase Urine RBC Urine WBC Urine Bacteria Ur Culture Indicated? SARS-CoV-2 (PCR) Negative 02/16/21 02/17/21 02/17/21 20:45 03:50 05:50 PT INR D-Dimer Total Creatine Kinase CK-MB (CK-2) CK-MB (CK-2) Rel Index Troponin I < 0.012 < 0.012 NT-Pro-B Natriuret Pep Triglycerides Cholesterol LDL Cholesterol, Calc HDL Cholesterol TSH Urine Color Yellow Urine Appearance Sl cloudy Urine pH 6.5 Ur Specific Hamel 1.010 Urine Protein Negative Urine Glucose (UA) Negative Urine Ketones Negative Urine Occult Blood Trace-intact Urine Nitrate Positive H Urine Bilirubin Negative Urine Urobilinogen 0.2 Ur Leukocyte Esterase 1+ H Urine RBC 1-5/hpf Urine WBC 5-10/hpf H Urine Bacteria Many (>30) H Ur Culture Indicated? Specimen cultured SARS-CoV-2 (PCR) 02/17/21 02/17/21 02/17/21 05:50 05:50 17:55 PT 11.8 INR 1.1 D-Dimer Total Creatine Kinase 85 CK-MB (CK-2) TNP CK-MB (CK-2) Rel Index TNP Troponin I < 0.012 NT-Pro-B Natriuret Pep 538 H Triglycerides 135 Cholesterol 182 LDL Cholesterol, Calc 120 H HDL Cholesterol 35 L TSH Urine Color Urine Appearance Urine pH Ur Specific Hamel Urine Protein Urine Glucose (UA) Urine Ketones Urine Occult Blood Urine Nitrate Urine Bilirubin Urine Urobilinogen Ur Leukocyte Esterase Urine RBC Urine WBC Urine Bacteria Ur Culture Indicated? SARS-CoV-2 (PCR) [facility] Medical History (Updated 02/16/21 @ 20:39 by TIGIST Wiggins-KATERIN) Brain aneurysm History of atrial fibrillation History of hyperlipidemia History of hypertension History of myocardial infarction History of pulmonary embolus (PE) Surgical History (Updated 02/16/21 @ 20:38 by TIGIST Wiggins-KATERIN) History of cholecystectomy History of knee replacement 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 Family History Mother Bipolar 1 disorder Father Cancer Sister Cancer Social History household members: other Smoking Status: Never smoker alcohol intake: never Assessment & Plan Assessment & Plan narrative: Chest pain, radiating into left arm with dyspnea and diaphoresis on exertion, acute, in the setting of hypertensive urgency, acute, and coginitive impairment,acute,? with a history of [place], hypertension, hyperlipidemia,and atrial fibrillation, chronic, present on admission -Chest pain verses Stroke rule out verses Heart Failure exacerbation-as patient has not been on medication management for several years will complete risk stratification for both. -initial presenting BP 194/79, 181/79, 172/73 -BNP 464 -heart score of 4 moderate, NIH is 0 -ordered stress, echo, head CT, head MRI -telemedicine, Plavix 75 mg, ASA 81 mg, Lipitor 80 mg, Lovenox 40 mg -Orthostatic V/S Q shift, start lisinopril 10mg tomorrow -UA to rule out UTI, lipid panel, TSH, trend troponin -gentle rehydration- LR @60cc/hr -patient has aneurysmal clips and is not eligible for an MRI. MRI has been aborted -repeat troponins are negative, EKG are unremarkable, -await stress test in the more -echo results are pending 2. Constipation, chronic, present on admission -Continue patient's mirilax 3. History of pulmonary embolus, chronic, present on admission -order D-dimer I have utilized all available methods to review update confirm the patient's current medications Time Spent With Patient Critical Care time: I spent a total of [] minutes of critical care time on this patient's care today; this time is exclusive of procedural time. Quality VTE Deep Vein Thrombosis/Pulmonary Embolism Present on Admission: No
[2021-02-17] MEDS: ATORVASTATIN 20 MG TABLET 80 MG PO (20:27)
[2021-02-18] VITALS (11 sets, daily range): BP systolic 77–158; BP diastolic 35–69; PULSE 50–83; RESP 16–18; TEMP 36.2–36.7; O2SAT 94–99
[2021-02-18] MEDS: ASPIRIN EC 81 MG TABLET PO (09:57)
[2021-02-18] MEDS: ENOXAPARIN 40 MG/0.4 ML SYRINGE SUBCUT (09:57)
[2021-02-18] MEDS: cefTRIAXone 1,000 MG in SODIUM CHLORIDE 0.9% 100 ML 200 ML IV (09:57)
[2021-02-18] MEDS: CLOPIDOGREL 75 MG TABLET PO (09:58)
--- NOTE | 2021-02-18 11:18 | PT.IPTN ---
Physical Therapy Treatment Note M2 PT-IP Current Condition Start: 02/17/21 13:13 Freq: NEEDED Status: Active Protocol: Document 02/18/21 10:57 SP (Rec: 02/18/21 14:48 SP [id number]) Physical Therapy Current Condition Current Condition Evaluation Date 02/17/21 Treatment Diagnosis chest pain; difficulty in walking Onset Date 02/16/21 M3 PT-IP Subjective Start: 02/17/21 13:13 Freq: NEEDED Status: Active Protocol: Document 02/18/21 10:57 SP (Rec: 02/18/21 14:48 SP [id number]) Subjective Physical Therapy Visit Type Type Treatment Note Visit Start Time 10:57 Visit Stop Time 11:18 Total Visit Minutes 21 Notes Vitals take during tx: supine HOB flat: BP 122/49 HR 73 SaO2 98% on RA seated EOB 89/43 HR 61 w/ dizziness 2 min sit: 105/51 HR 65 not as dizzy stand post SPT bed>chair: 77/ 35 HR 50- reported dizziness but ok to go to chair. seated in chair reclined LEs elevated: 114/52 I feel better, I don't know why so dizzy has been like this for years. Number of TEAM OTR TRUCK DRIVER Visits 1 Physical Therapy Visit Comments Patient Comments Pt agreed working with therapy , reports has hard time moving her legs. Patient Goals return home with grand daughter to assist her at her house. Pt states grand daughter has set of stairs and BHR can reach together. M4 PT-IP Mobility and Gait Start: 02/17/21 13:13 Freq: NEEDED Status: Active Protocol: Document 02/18/21 10:57 SP (Rec: 02/18/21 14:48 SP [id number]) PT-Bed Mobility Assessment Supine to Sit Supine to Sit Maximum Assistance,1 Person Assistance Scooting Scooting to Edge of Bed Moderate Assistance PT-Transfer Assessment Sit to and From Stand Sit to and from Stand Moderate Assistance,1 Person Assistance,Use of Upper Extremities Equipment Transfer Assistive Device Gait Belt,Front Wheeled Walker Orthotic/Prosthetic Devices or Brace: No Transfers Transfer Destination Chair Transfer Technique SPT w/ FWW Transfer Ability Level of Assist Minimal Assistance,1 Person Assistance,Use of Upper Extremities Comments Mobility Comments Orthostatic BPs with position changes sup>sit, sit>stand with dizziness symptoms. Pt in bed when arrived. Completed supine>sit HOB flat with strap on LLE to self assist to EOB, Max A for trunk righting and cues for pushing from bed for self support. Mod A for scooting to EOB via transfer pad, able support self with BUE. Sit>stand Min A x1, stood still to acclimate to pos change due to reported dizziness, able and wanted to progress to chair, SPT to chair at R using FWW Min A trunk balance, stood front chair for BP assessment CGA, no LOB. Cued reach back Min A for slow descent to chair. BPs unsafe to progress gait and standing activity and reports of dizziness, pt agreed wanted to recline and rest in chair. TEAM OTR TRUCK DRIVER discussed recommending SNF to progress strengthen as safe with BPs, pt stated understood, did not agree/ disagree. Pt had call light and all needs in reach before left. TEAM OTR TRUCK DRIVER assisted LE elevation in chair per pt request. TEAM OTR TRUCK DRIVER notified nursing fall risk and may require chair alarm for safety, was told she has been safe and clear responses, not think is necessary but will continue to monitor. Updated communication board. Gait Assessment Gait Gait Assistance Required: Minimum Assistance,1 Person Assist Distance (Feet) 2 Able to Maintain Weight Bearing Status Yes During Gait Assistive Devices Assistive Device Gait Belt,Front Wheeled Walker Orthotic/Prosthetic Devices or Brace: No Gait Deviations General Gait Pattern Decreased Stride Length, Decreased Feet Clearance Factors Limiting Gait Function Factors Limiting Gait Function Decreased Activity Tolerance, Decreased Strength,Difficulty Following Directions,Poor Balance,Poor Safety Awareness Comments Gait Comments See mobility comments Stair Climbing Assessment Comments Stair Climbing Comments unable to assess due to orthostatic hypotension. Pt stated grand daughter has set of steps w/ B HR to her home which will stay with her until can return home. PT-Balance Assessment Sitting Balance and Reactions Static Sitting Balance Ability Fair Dynamic Sitting Balance Ability Fair Standing Balance and Reactions Static Standing Balance Ability Fair Dynamic Standing Balance Ability Poor Device Used FWW M5 PT-IP Objective Assessments Start: 02/17/21 13:13 Freq: NEEDED Status: Active Protocol: Document 02/17/21 11:30 AB (Rec: 02/17/21 13:27 AB [id number]) Orientation Orientation/Cognition Level of Alertness Alert Orientation Name Safety Awareness Decreased Safety Awareness Memory Description Short Term Impaired Gross Range of Motion Lower Extremity ROM Assessment Within Functional Limits Impairments c/o LE tightness with increase muscle guarding with movement Strength Comments Strength Comments instructed pt to obtain MMT on BLE but pt tends to move LE upwards instead of pushing when instructed; pt stated that she cannot move her legs at all and that she needs assistance Muscle Tone Muscle Tone WNL Yes M6 PT-IP Treatment Start: 02/17/21 13:13 Freq: NEEDED Status: Active Protocol: Document 02/18/21 10:57 SP (Rec: 02/18/21 14:48 SP [id number]) Physical Therapy Treatment Education Education Provided Safety M7 PT-IP Assessment and Plan Start: 02/17/21 13:13 Freq: NEEDED Status: Active Protocol: Document 02/18/21 10:57 SP (Rec: 02/18/21 14:48 SP [id number]) PT Summary Assessment and Plan Potential Rehabilitation Potential Good Status of Condition at Evaluation Evolving Summary Impairments Pain,ROM,Strength,Balance, Coordination,Sensation,Tone, Cognition,Bed Mobility, Transfers,Gait,Activity Tolerance Progress Towards Goals Progressing Toward Goals,Slow Progress due to Medical Issues ,Slow Progress due to Activity Tolerance Assessment Summary Pt requiring Max A for bed mobility HOB flat to assimulate grand daughters flat bed, transfers Min A w/ fWW due to orthostatic hypotension symptomatic, decreased foot clearance, cued proper hand placement and positon back up fully for safety. Pt had call light and all needs in reach before left . Pt requiring SNF vs home 24/ 7 assist available with HHPT for progressing strength, activity tolerance and safety vital assessment for safe DC to grand daughter's when able. Will continue to assess progress. Goals Bed Mobility Goal Standby Assistance Transfer Goal Standby Assistance,Front Wheeled Walker Gait Goal Standby Assistance,Front Wheel Walker Gait Distance 150 Other Goals up/down 3 steps 1 rail CGA Days to Meet Goals 10 Frequency of Treatment Frequency Of Treatment Once a Day Treatment Plan Physical Therapy Treatment Plan Bed Mobility Training,Transfer Training,Gait Training, Therapeutic Exercise,Balance Retraining,Discharge Planning, Neuromuscular Re-ed, Coordination Retraining,Manual Therapy Other Recommendations and Next Treatment check orthostatic BPs, LE ex, Focus bed mob, transfers, gait further distance if safe. Will need assess stair mgt for safe DC home when able. Precautions Other Precautions falls Recommendations To Nursing Amount of Assist Needed 1 Person Assist Discharge Recommendations PT Discharge Recommendations Home with 24/7 Assist Available,Home Health,SNF Rehab,Home vs SNF Transportation Needs at Discharge Private Vehicle,Wheelchair/ Cabulance
--- NOTE | 2021-02-18 15:04 | PM.PN.1 ---
Subjective Subjective Date Patient Seen: 02/18/21 Interval history: 85-year-old female admitted to the hospital with chest pain. She reports intermittent chest pain last was last evening. She also complains of left shoulder pain. Patient is noted to be orthostatic when standing with a drop in her blood pressure to 83/58 systolic when standing. She denies any shortness of breath. Patient is awaiting stress test today. Exam Vital Signs (past 8 hours): - 02/18/21 07:40 Temperature 98.0 F Pulse Rate 62 Respiratory Rate 18 Blood Pressure 158/69 H Pulse Oximetry 97 Oxygen Delivery Method Room Air Oxygen Flow Rate 0 Narrative Exam Narrative: Pleasant elderly female lying in bed in no obvious distress Resp Other: Lungs clear to auscultation Cardio Other: Cardiac exam: Regular rate and rhythm normal S1-S2 with a 2/6 systolic ejection murmur GI Other: Abdomen soft and nontender Extrem Other: Extremity no edema, left shoulder tender to palpation along the biceps tendon Objective Labs Result Diagrams: 02/16/21 17:35 02/16/21 17:35 Labs: Laboratory Results - last 24 hr 02/17/21 17:55 Total Creatine Kinase 85 CK-MB (CK-2) TNP CK-MB (CK-2) Rel Index TNP Troponin I < 0.012 PFSH Medical History (Updated 02/16/21 @ 20:39 by TIGIST Wiggins-KATERIN) Brain aneurysm History of atrial fibrillation History of hyperlipidemia History of hypertension History of myocardial infarction History of pulmonary embolus (PE) Surgical History (Updated 02/16/21 @ 20:38 by TIGIST Wiggins-KATERIN) History of cholecystectomy History of knee replacement 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 Family History Mother Bipolar 1 disorder Father Cancer Sister Cancer Social History household members: other Smoking Status: Never smoker alcohol intake: never Assessment & Plan Assessment & Plan narrative: Chest pain, radiating into left arm with dyspnea and diaphoresis on exertion, acute, in the setting of hypertensive urgency, acute, and coginitive impairment,acute,? with a history of DC, hypertension, hyperlipidemia,and atrial fibrillation, chronic, present on admission -Chest pain verses Stroke rule out verses Heart Failure exacerbation-as patient has not been on medication management for several years will complete risk stratification for both. -patient has ruled out for DC -waiting stress test in the morning -cardiac echo results pending -agree with Asa, lipitor 40 mg daily, plavix 2. orthostatic hypotension -low dose midodrine -hold lisinopril 3. Constipation, chronic, present on admission -Continue patient's mirilax 3. History of pulmonary embolus, chronic, present on admission -order D-dimer 4. Probable biceps tendinities -shoulder xray negative -suggest outpatient steroid injection 5. Disposition -likely would benefit from SNF at discharge -Patient prefers to return to [facility] Time Spent With Patient Critical Care time: I spent a total of [] minutes of critical care time on this patient's care today; this time is exclusive of procedural time. Quality VTE Deep Vein Thrombosis/Pulmonary Embolism Present on Admission: No
[2021-02-18] MEDS: MIDODRINE HCL 5 MG TABLET 2.5 MG PO (18:52)
[2021-02-18] MEDS: ATORVASTATIN 20 MG TABLET 40 MG PO (20:27)
[2021-02-18] MEDS: ACETAMINOPHEN 325 MG TABLET 650 MG PO (20:29)
[2021-02-19] VITALS (11 sets, daily range): BP systolic 67–157; BP diastolic 35–78; PULSE 53–84; RESP 14–16; TEMP 36.2–36.8; O2SAT 94–98
[2021-02-19] MEDS: MIDODRINE HCL 5 MG TABLET 2.5 MG PO ×2 (07:06→12:07)
[2021-02-19] MEDS: cefTRIAXone 1,000 MG in SODIUM CHLORIDE 0.9% 100 ML 200 ML IV (10:17)
[2021-02-19] MEDS: CLOPIDOGREL 75 MG TABLET PO (10:18)
[2021-02-19] MEDS: ENOXAPARIN 40 MG/0.4 ML SYRINGE SUBCUT (10:18)
[2021-02-19] MEDS: ASPIRIN EC 81 MG TABLET PO (10:18)
--- NOTE | 2021-02-19 11:34 | PT.IPTN ---
Current Diagnoses Chest pain, unspecified (02/16/21) Physical Therapy Treatment Note M2 PT-IP Current Condition Start: 02/17/21 13:13 Freq: NEEDED Status: Active Protocol: Document 02/18/21 10:57 SP (Rec: 02/18/21 14:48 SP [id number]) Physical Therapy Current Condition Current Condition Evaluation Date 02/17/21 Treatment Diagnosis chest pain; difficulty in walking Onset Date 02/16/21 M3 PT-IP Subjective Start: 02/17/21 13:13 Freq: NEEDED Status: Active Protocol: Document 02/19/21 10:59 KS (Rec: 02/19/21 12:48 KS [id number]) Subjective Physical Therapy Visit Type Type Treatment Note Visit Start Time 10:59 Visit Stop Time 11:34 Total Visit Minutes 35 Notes BP: Sitting EOB: 93/48 Standin/39 Sittin/47 Standin/38 Supine: 136/53 Number of ROOF ASSEMBLER Visits 2 Physical Therapy Visit Comments Patient Comments Pt agreeable to work w/ therapy and granddaughter present during tx. Patient Goals return home with grand daughter to assist her at her house. Pt states grand daughter has set of stairs and BHR can reach together. M4 PT-IP Mobility and Gait Start: 02/17/21 13:13 Freq: NEEDED Status: Active Protocol: Document 02/19/21 10:59 KS (Rec: 02/19/21 12:48 KS [id number]) PT-Bed Mobility Assessment Supine to Sit Supine to Sit Contact Guard Assistance Sit to Supine Sit to Supine Contact Guard Assistance Scooting Scooting to Edge of Bed Contact Guard Assistance PT-Transfer Assessment Sit to and From Stand Sit to and from Stand Contact Guard Assistance,1 Person Assistance,Use of Upper Extremities Equipment Transfer Assistive Device Gait Belt,Front Wheeled Walker Orthotic/Prosthetic Devices or Brace: No Transfers Transfer Destination Bed Transfer Ability Level of Assist Contact Guard Assistance,1 Person Assistance,Use of Upper Extremities Comments Mobility Comments Pt limited due to orthrostatic hypotension, but showed improvement w/ mobility today. CGA for bed mobility and sit< >Stand w/ FWW. Pts BP sitting EOB: 93/48, in standin/39 , pt reported some lightheadedness and sat back down, BP: 106/47, pt sit<> stand again w/ FWW CGA and BP: 66/38 and pt reporting feeling unsteady, like I need to get off of my feet pt sit <>sup CGA and BP: 136/53 in supine. Pt c/o shoulder pain, tenderness identified in bilateral biceps tendons. Pt then completed 1x10 bilateral ankle pumps, SLR, heel slides, glute sets, and quad sets. Pt verbalized faitigue of quads during quad sets. Pt left in bed w/ alarm on, gd in room, and all needs in reach. RN notified of BP. Gait Assessment Comments Gait Comments Unable due to orthostatic hypotension. PT-Balance Assessment Sitting Balance and Reactions Static Sitting Balance Ability Good Dynamic Sitting Balance Ability Fair Standing Balance and Reactions Static Standing Balance Ability Fair Dynamic Standing Balance Ability Fair Device Used FWW M5 PT-IP Objective Assessments Start: 02/17/21 13:13 Freq: NEEDED Status: Active Protocol: Document 02/17/21 11:30 AB (Rec: 02/17/21 13:27 AB [id number]) Orientation Orientation/Cognition Level of Alertness Alert Orientation Name Safety Awareness Decreased Safety Awareness Memory Description Short Term Impaired Gross Range of Motion Lower Extremity ROM Assessment Within Functional Limits Impairments c/o LE tightness with increase muscle guarding with movement Strength Comments Strength Comments instructed pt to obtain MMT on BLE but pt tends to move LE upwards instead of pushing when instructed; pt stated that she cannot move her legs at all and that she needs assistance Muscle Tone Muscle Tone WNL Yes M6 PT-IP Treatment Start: 02/17/21 13:13 Freq: NEEDED Status: Active Protocol: Document 02/19/21 10:59 KS (Rec: 02/19/21 12:48 KS [id number]) Physical Therapy Treatment Exercises Exercises Ankle Pumps,Gluteal Sets,Quad Sets,Heel Slides,Straight Leg Raises Education Education Provided Safety Other Treatments Other Treatment Performed Educated pt on self cross friction massage of bilateral biceps tendon to relieve pain. M7 PT-IP Assessment and Plan Start: 02/17/21 13:13 Freq: NEEDED Status: Active Protocol: Document 02/19/21 10:59 KS (Rec: 02/19/21 12:48 KS [id number]) PT Summary Assessment and Plan Potential Rehabilitation Potential Good Status of Condition at Evaluation Evolving Summary Impairments Pain,ROM,Strength,Balance, Coordination,Sensation,Tone, Cognition,Bed Mobility, Transfers,Gait,Activity Tolerance Progress Towards Goals Progressing Toward Goals,Slow Progress due to Medical Issues ,Slow Progress due to Activity Tolerance Assessment Summary Pt showed improvement w/ mobility, but was limited due to very low BP. Pt reports feelings of lightheaded or unsteady, but denied dizziness although demeanor and energy level seemed to change w/ positional changes. Pt able to complete LE exercises to promote blood flow and strengthening, however expressed fatigue following. Will continue to assess pt progress. Goals Bed Mobility Goal Standby Assistance Transfer Goal Standby Assistance,Front Wheeled Walker Gait Goal Standby Assistance,Front Wheel Walker Gait Distance 150 Other Goals up/down 3 steps 1 rail CGA Days to Meet Goals 10 Frequency of Treatment Frequency Of Treatment Once a Day Treatment Plan Physical Therapy Treatment Plan Bed Mobility Training,Transfer Training,Gait Training, Therapeutic Exercise,Balance Retraining,Discharge Planning, Neuromuscular Re-ed, Coordination Retraining,Manual Therapy Other Recommendations and Next Treatment check orthostatic BPs, LE ex, Focus bed mob, transfers, gait further distance if safe. Will need assess stair mgt for safe DC home when able. Precautions Other Precautions falls Discharge Recommendations PT Discharge Recommendations Home with 24/ Assist Available,Home Health,SNF Rehab,Home vs SNF Transportation Needs at Discharge Private Vehicle,Wheelchair/ Cabulance
--- NOTE | 2021-02-19 11:52 | CM.DPNOTE ---
Addendum entered by CHELSIE Leon 02/19/21 12:55: ADD: Spoke now w/ DREW Adame who explained that patient could not work much with therapy today d/t significant hypotension. Patient did not report accurately to this MEDICAL ONCOLOGY PHYSICIAN when she said that she is cleared from a physical therapy point of view. Wendi hopes patient will progress towards home w/family, once she can ambulate w/o symptomatic hypotension. Patient told this MEDICAL ONCOLOGY PHYSICIAN she was planning on going home w/her family. Will plan to review DCP again w/patient after therapy eval Tuesday02.20.21. Insurer: [facility] MARY Original Note: DCP Note Reviewed chart. Spoke w/patient and grand dtr Bria. Patient states she has just worked with PT and they have cleared patient for return home. Discussed home health and patient agreeable, no agency preference. Patient plans to DC to her grand dtr Bria's house at [address] [place] upon DC, then will go back home to [place] once strong enough to do so. Placed call to [facility] per calendar rotation. Discussed this referral with Lakisha, reviewed initial DC to [place] then patient's eventual return to her home in [place] and lakisha states mu can continue service throughout this. Completed F2F, Jayne GOMEZ kindly agreed to obtain provider signature and fax this referral to mu. DC expected tomorrow, Tuesday. GEN order placed. Plan: DC expected tomorrow, home w/family and [facility] RN/PT MARY
--- NOTE | 2021-02-19 13:14 | CM.DPNOTE ---
Faxed referral packet to Cher[facility] per Rosaura. Received fax conf. Will send DC summary when completed. Jayne Walton CM Asst.
--- NOTE | 2021-02-19 17:36 | PM.PN.1 ---
Subjective Subjective Date Patient Seen: 02/19/21 Time Patient Seen: 17:36 Interval history: Patient is 85-year-old female who was admitted to the hospital for chest pain. She has had no chest pain today. She has been found to be markedly orthostatic. Patient complains of feeling dizzy when standing. She is currently on treatment for a urinary tract infection. She has no shortness of breath. The patient underwent a stress test today. Exam Vital Signs (past 8 hours): - 02/19/21 11:47 02/19/21 15:45 Temperature 97.2 F L Pulse Rate 68 Pulse Rate [Orthostatic Lying] 70 Pulse Rate [Orthostatic Sitting] 82 Pulse Rate [Orthostatic Standing] 84 Respiratory Rate 14 Blood Pressure 136/53 L Blood Pressure [Orthostatic Lying] 114/47 L Blood Pressure [Orthostatic Sitting] 97/51 L Blood Pressure [Orthostatic Standing] 67/35 L Pulse Oximetry 97 Oxygen Delivery Method Room Air Oxygen Flow Rate 0 Narrative Exam Narrative: Pleasant elderly female lying in bed Resp Other: Lungs clear to auscultation Cardio Other: Cardiac exam irregular normal S1-S2 with a 2/6 systolic ejection murmur GI Other: Abdomen soft nontender nondistended Extrem Other: Extremity no edema Objective Labs Result Diagrams: 02/16/21 17:35 02/16/21 17:35 [facility] Medical History (Updated 02/16/21 @ 20:39 by TIGIST Wiggins-KATERIN) Brain aneurysm History of atrial fibrillation History of hyperlipidemia History of hypertension History of myocardial infarction History of pulmonary embolus (PE) Surgical History (Updated 02/16/21 @ 20:38 by TIGIST Wiggins-KATERIN) History of cholecystectomy History of knee replacement 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 Family History Mother Bipolar 1 disorder Father Cancer Sister Cancer Social History household members: other Smoking Status: Never smoker alcohol intake: never Assessment & Plan Assessment & Plan narrative: Chest pain, radiating into left arm with dyspnea and diaphoresis on exertion, acute, in the setting of hypertensive urgency, acute, and coginitive impairment,acute,? with a history of CA, hypertension, hyperlipidemia,and atrial fibrillation, chronic, present on admission -Chest pain verses Stroke rule out verses Heart Failure exacerbation-as patient has not been on medication management for several years will complete risk stratification for both. -patient has ruled out for CA stress test reveals no evidence of reversible ischemia -cardiac echo the left ventricle is normal in size and wall thickness.The ejection fraction is estimated to be 60-65%.Left ventricular wall motion is normal. The right ventricle is normal in size and function.The right ventricular systolic pressure is estimated to be at least 25 mmHg based on an estimated right atrial pressure of 3 mm Hg. No significant valvular disease. -will discontinue Plavix and Lipitor at this time 2. orthostatic hypotension -low dose midodrine, patient continues to be markedly orthostatic. Her blood pressure dropped to 67/35 -will obtain a Cortrosyn stem test to rule out adrenal insufficiency -continue midodrine, will increase to 5 mg q.6 -hold lisinopril 3. Urinary tract infection -secondary to E coli, will switch to oral levofloxacin for 2 additional day 4. Constipation, chronic, present on admission -Continue patient's mirilax 3. History of pulmonary embolus, chronic, present on admission, CTA negative for PE - 4. Probable biceps tendinities -shoulder xray negative -suggest outpatient steroid injection 5. Disposition -likely would benefit from SNF at discharge -Patient prefers to return to [place] Given patient's significant orthostasis and dizziness she is unsafe to discharge home independently. Time Spent With Patient Critical Care time: I spent a total of [] minutes of critical care time on this patient's care today; this time is exclusive of procedural time. Quality VTE Deep Vein Thrombosis/Pulmonary Embolism Present on Admission: No
[2021-02-19] MEDS: MIDODRINE HCL 5 MG TABLET PO (18:27)
--- NOTE | 2021-02-19 19:20 | DI.NM.S_ITS ---
DATE OF SERVICE: 02/19/2021 PROCEDURE: Pharmacological perfusion study. INDICATION: Chest pain with history of hypertension, hyperlipidemia, AFib. RADIOPHARMACEUTICAL: 25.1 millicurie technetium-99m Myoview IV was injected at stress and 11.8 millicurie technetium-99m Myoview IV was injected at rest. CARDIAC STRESS: The patient underwent IV Lexiscan perfusion study under the supervision of an attending staff using standard intravenous Lexiscan, as per protocol. She remained hemodynamically stable. Newton chest tightness and leg pain during intravenous Lexiscan infusion. Baseline rhythm was sinus. During stress, there were some nonspecific ST-T changes without any convincing inducible ischemic changes. Some PACs and PVCs were seen. No significant sustained ventricular tachycardia or obvious atrial fibrillation seen. RAW DATA: Significant breast shadow is seen. There was increased subdiaphragmatic activity, as well. GATED STUDY: Resting LV ejection fraction 78 percent and stress LV ejection fraction 85 percent. Resting end-diastolic volume 69 mL. TID ratio 0.66, which is within normal limits. Lung/heart ratio 0.34, which is within normal limits. Next. MYOCARDIAL PERFUSION SCAN: Please note that there are no stress prone images. Resting supine and stress supine images were compared to each other. Resting supine images revealed moderate size, mild to moderately decreased perfusion of inferior lateral wall. During stress,supine images, there is some improvement. There is a small size, mildly decreased perfusion of base to mid inferior lateral wall only. No reversible ischemia. CONCLUSION: 1. No obvious reversible ischemia. 2. There is a predominantly fixed, small size, mildly decreased perfusion of base to mid inferior lateral wall, which is better on the stress supine than resting supine images. There is breast shadow, as well as diaphragmatic shadow seen during raw images. Gated study revealed a stress left ventricular ejection fraction 85 percent without any obvious wall motion abnormalities. In absence of the stress prone images, cannot distinguish tissue attenuation artifact versus possible small noninferior lateral transmural myocardial infarction. However, based on normal contractility, artifact seen during raw images, most likely we are dealing with persistent tissue attenuation artifact. Correlate clinically. Kay Robles - Betty/brad doc#: [id number]/job#: [id number] dd: 02/19/2021 17:12:00 dt: 02/19/2021 18:58:00 DICTATING MD/COPIES TO: Medina Delgado MD COPIES MNE: BLANCHE;
[2021-02-19 19:28] LABS: Procalcitonin 0.06 ng/mL (<0.5)
[2021-02-19 19:42] LABS: Cortisol Random 5.21 ug/dL
[2021-02-19] MEDS: ACETAMINOPHEN 325 MG TABLET 650 MG PO (20:23)
[2021-02-19] MEDS: ATORVASTATIN 20 MG TABLET 40 MG PO (20:25)
[2021-02-20] VITALS (9 sets, daily range): BP systolic 79–148; BP diastolic 40–71; PULSE 55–80; RESP 16; TEMP 36.4–36.7; O2SAT 94–98
[2021-02-20] MEDS: MIDODRINE HCL 5 MG TABLET PO ×3 (06:30→18:55)
[2021-02-20] MEDS: levoFLOXacin 250 MG TABLET PO (06:48)
[2021-02-20 08:08] LABS: Cortisol Basline for Stim. 12.8 ug/dL
[2021-02-20] MEDS: COSYNTROPIN 0.25 MG VIAL IV (08:19)
[2021-02-20] MEDS: ENOXAPARIN 40 MG/0.4 ML SYRINGE SUBCUT (08:19)
[2021-02-20] MEDS: CLOPIDOGREL 75 MG TABLET PO (08:19)
[2021-02-20] MEDS: ASPIRIN EC 81 MG TABLET PO (08:19)
[2021-02-20 09:56] LABS: Cortisol 30 MIN Post Stim. 23.3 ug/dL
[2021-02-20 10:35] LABS: Cortisol 60 MIN Post Stim. 27.7 ug/dL
--- NOTE | 2021-02-20 12:03 | PT.IPTN ---
Current Diagnoses Chest pain, unspecified (02/16/21) Physical Therapy Treatment Note M2 PT-IP Current Condition Start: 02/17/21 13:13 Freq: NEEDED Status: Active Protocol: Document 02/18/21 10:57 SP (Rec: 02/18/21 14:48 SP [id number]) Physical Therapy Current Condition Current Condition Evaluation Date 02/17/21 Treatment Diagnosis chest pain; difficulty in walking Onset Date 02/16/21 M3 PT-IP Subjective Start: 02/17/21 13:13 Freq: NEEDED Status: Active Protocol: Document 02/20/21 11:43 KS (Rec: 02/20/21 12:31 KS [id number]) Subjective Physical Therapy Visit Type Type Treatment Note Visit Start Time 11:43 Visit Stop Time 12:03 Total Visit Minutes 20 Notes BP: Supine: 145/56 Sittin/60 Standin/44 Number of CITY COUNCIL MEMBER Visits 3 Physical Therapy Visit Comments Patient Comments Pt agreeable to work w/ therapy and granddaughter and MULTI TOWNSHIP ASSESSOR present during tx. Patient Goals return home with grand daughter to assist her at her house. Pt states grand daughter has set of stairs and BHR can reach together. M4 PT-IP Mobility and Gait Start: 02/17/21 13:13 Freq: NEEDED Status: Active Protocol: Document 02/20/21 11:43 KS (Rec: 02/20/21 12:31 KS [id number]) PT-Bed Mobility Assessment Supine to Sit Supine to Sit Moderate Assistance,1 Person Assistance Sit to Supine Sit to Supine Moderate Assistance,1 Person Assistance,Head of Bed Elevated PT-Transfer Assessment Sit to and From Stand Sit to and from Stand Moderate Assistance,1 Person Assistance,Use of Upper Extremities Equipment Transfer Assistive Device Gait Belt,Front Wheeled Walker Orthotic/Prosthetic Devices or Brace: No Transfers Transfer Destination Bed,Bedside Commode Transfer Technique Stand Step Pivot Transfer Ability Level of Assist Moderate Assistance,2 Person Assistance,Use of Upper Extremities Comments Mobility Comments Pt in bed w/ MULTI TOWNSHIP ASSESSOR checking vitals upon arrival. BP: 145/ 56 in supine. Mod A for sup<> sit, BP: 121/60. Pt requesting to use BSC. Pt required Mod A and cues for sit<>stand, BP: 82/44 and pt reporting dizziness and w/ difficulty keeping her eyes open. Mod A for sit. She then performed stand step pivot w/ Mod A x2 w / FWW to BSC, cues and FWW management required. Mod A x2 for stand step pivot back to bed as well. Mod A for sit<> sup and MAx A x2 for scooting up in bed. Pt left in bed w/ MULTI TOWNSHIP ASSESSOR in room. Unable to perform LE exercises due to pt fatigue/difficulty staying awake. Gait Assessment Gait Gait Assistance Required: Moderate Assistance,2 Person Assist Assistive Devices Assistive Device Gait Belt,Front Wheeled Walker Orthotic/Prosthetic Devices or Brace: No Comments Gait Comments Stand step pivot x2 w/ Mod A x2 max cues anf FWW management to BSc and back to bed due to hypotension and fatigue. PT-Balance Assessment Sitting Balance and Reactions Static Sitting Balance Ability Fair Dynamic Sitting Balance Ability Fair Standing Balance and Reactions Static Standing Balance Ability Poor Dynamic Standing Balance Ability Poor Device Used FWW M5 PT-IP Objective Assessments Start: 02/17/21 13:13 Freq: NEEDED Status: Active Protocol: Document 02/17/21 11:30 AB (Rec: 02/17/21 13:27 AB [id number]) Orientation Orientation/Cognition Level of Alertness Alert Orientation Name Safety Awareness Decreased Safety Awareness Memory Description Short Term Impaired Gross Range of Motion Lower Extremity ROM Assessment Within Functional Limits Impairments c/o LE tightness with increase muscle guarding with movement Strength Comments Strength Comments instructed pt to obtain MMT on BLE but pt tends to move LE upwards instead of pushing when instructed; pt stated that she cannot move her legs at all and that she needs assistance Muscle Tone Muscle Tone WNL Yes M6 PT-IP Treatment Start: 02/17/21 13:13 Freq: NEEDED Status: Active Protocol: Document 02/20/21 12:31 KS (Rec: 02/20/21 12:32 KS [id number]) Physical Therapy Treatment Education Education Provided Safety M7 PT-IP Assessment and Plan Start: 02/17/21 13:13 Freq: NEEDED Status: Active Protocol: Document 02/20/21 11:43 KS (Rec: 02/20/21 12:31 KS [id number]) PT Summary Assessment and Plan Potential Rehabilitation Potential Good Status of Condition at Evaluation Evolving Summary Impairments Pain,ROM,Strength,Balance, Coordination,Sensation,Tone, Cognition,Bed Mobility, Transfers,Gait,Activity Tolerance Progress Towards Goals Slow Progress due to Medical Issues,Slow Progress due to Activity Tolerance Assessment Summary Pt w/ decreased mobility today requiring increased assistance. Mod A for bed mobility and sit<>stand, Mod A x2 and max cues for stand step pivot. Pt unable to tolerate LE exercises due to high level of fatigue and remains limited in mobility due to hypotension. Pt will require SNF at this time to improve strength and functional mobility independence. Goals Bed Mobility Goal Standby Assistance Transfer Goal Standby Assistance,Front Wheeled Walker Gait Goal Standby Assistance,Front Wheel Walker Gait Distance 150 Other Goals up/down 3 steps 1 rail CGA Days to Meet Goals 10 Frequency of Treatment Frequency Of Treatment Once a Day Treatment Plan Physical Therapy Treatment Plan Bed Mobility Training,Transfer Training,Gait Training, Therapeutic Exercise,Balance Retraining,Discharge Planning, Neuromuscular Re-ed, Coordination Retraining,Manual Therapy Other Recommendations and Next Treatment check orthostatic BPs, LE ex, Focus bed mob, transfers, gait further distance if safe. Will need assess stair mgt for safe DC home when able. Precautions Other Precautions falls Recommendations To Nursing Amount of Assist Needed 2 Person Assist Discharge Recommendations PT Discharge Recommendations Home with 27/09 Assist Available,SNF Rehab Transportation Needs at Discharge Private Vehicle,Wheelchair/ Cabulance
[2021-02-20] MEDS: METOCLOPRAMIDE 10 MG/2 ML INJ 5 MG IV (12:47)
[2021-02-20] MEDS: DEXAMETHASONE 10 MG/ML VIAL IV (12:49)
--- NOTE | 2021-02-20 13:25 | CM.DPNOTE ---
DCP Note Reviewed chart. therapy team continue to feel patient would benefit from SNF stay. Spoke w/patient and her grand dtr Bria; Bria states she would like to do what is recommended at this time and so patient/family agreeable to approaching [facility] for SNF auth request to see if this can be obtained. No SNF preference at this time. Will fax this referral to in network [facility] facilities Faxed latest prog note and therapy notes to [facility] this afternoon requesting review for SNF auth MARY
--- NOTE | 2021-02-20 14:00 | CM.DPNOTE ---
Sent snf referral packets to: Faxed-[facility] & Iliana Cancino; emailed Leslie Caldwell; called and asked Tabby to review patient's information. Received confirmations on all. Jayne Walton CM Asst.
--- NOTE | 2021-02-20 16:19 | PM.PN.1 ---
Subjective Subjective Date Patient Seen: 02/20/21 Interval history: GRANDDAUGHTER IN THE ROOM DURING MY VISIT TODAY THIS IS A 85-YEAR-OLD FEMALE ORIGINALLY ADMITTED WITH CHEST PAIN. CARDIAC WORKUP HAS BEEN NEGATIVE. HOWEVER PATIENT HAS BECOME ORTHOSTATIC WITH BLOOD PRESSURE DROPPING TO THE UPPER 80S SYSTOLIC WHEN UP AND OUT OF BED TODAY PATIENT REPORTED FEELING WEAK AND WAS NOT ABLE TO PARTICIPATE IN PHYSICAL THERAPY SESSION DENIES ANY HEADACHES NO CONFUSION NO SYNCOPE OR PRESYNCOPAL FEELING DENIES ANY CHEST PAIN. NO CHEST PALPITATIONS NO NAUSEA OR VOMITING SPOKE TO PATIENT WITH GRANDDAUGHTER AT BEDSIDE Exam Vital Signs (past 8 hours): - 02/20/21 11:42 02/20/21 12:00 02/20/21 16:00 Temperature 97.5 F L Pulse Rate 55 L Pulse Rate [Orthostatic Lying] 55 L Pulse Rate [Orthostatic Sitting] 63 Pulse Rate [Orthostatic Standing] 75 Respiratory Rate 16 Blood Pressure 145/56 H Blood Pressure [Orthostatic Lying] 145/56 H Blood Pressure [Orthostatic Sitting] 121/60 Blood Pressure [Orthostatic Standing] 82/44 L Pulse Oximetry 97 96 96 Oxygen Delivery Method Room Air Oxygen Flow Rate 0 Narrative Exam Narrative: NO ACUTE DISTRESS. PATIENT IS ALERT ORIENTED X3. APPEARS STATED AGE HEAD ATRAUMATIC NORMOCEPHALIC NECK : SUPPLE WITHOUT ADENOPATHY NO CAROTID BRUITS EYE: EOMI, PERRLA, NORMAL CONJUNCTIVA; NO JAUNDICE CHEST: REGULAR RATE. NO RUBS. PMI IS NON DISPLACED. NORMAL S1-S2 PULMONARY: DECREASED BS OVER THE BASES. MILD BIBASILAR CRACKLES NOTED; NO INCREASED DULLNESS TO PERCUSSION ABDOMEN: SOFT. NONTENDER. NONDISTENDED. BOWEL SOUNDS ARE PRESENT IN ALL 4 QUADRANTS. NO MASS. EXTREMITIES: NO EDEMA.. NO CYANOSIS CLUBBING NOTED. NEURO: CRANIAL NERVES 2-12 GROSSLY INTACT. NO FOCAL NEUROLOGICAL DEFICIT NOTED. MSK: NORMAL RANGE OF MOTION FOR AGE. NO JOINT EFFUSION. SKIN: FAIR SKIN TURGOR FOR AGE. NO RASH : NORMAL EXTERNAL GENITALIA. PSYCH : APPROPRIATE MOOD AND AFFECT. 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 RESOLVED. NO SIGN OF ACS. STRESS TEST WAS NEGATIVE ORTHOSTATIC HYPOTENSION. CAUSE IS UNCLEAR GRAM-NEGATIVE UTI. ON ANTIBIOTICS PE PER HISTORY PLAN PATIENT REMAINED ORTHOSTATIC AT TIME WILL CONTINUE TO MONITOR FOR NOW THE CAUSE OF HER SYMPTOMS ON CLEAR COULD BE ASSOCIATED WITH DECREASED SYMPATHETIC TONE TO LOWER EXTREMITIES WILL ORDER NATHANIEL HOSE TO BE APPLIED AT ALL TIME TO BILATERAL LOWER EXTREMITIES DURING THE DAY MONITOR FLUID VOLUME CLOSELY DOES NOT APPEAR TO BE FLUID DEPLETED LABS OTHERWISE FAIRLY STABLE SPOKE TO PATIENT WITH HER GRANDDAUGHTER AT BEDSIDE PLAN IS FOR PATIENT TO GO HOME WITH HOME HEALTH SHE DOES NOT WISH TO GO TO PENITENTIARY FACILITY AT THIS TIME IF PATIENT SHOWS SIGNIFICANT IMPROVEMENT OVER THE NEXT 24-48 HOURS SHE WILL BE DISCHARGED TO HOME WITH HOME HEALTH Time Spent With Patient Critical Care time: I spent a total of [] minutes of critical care time on this patient's care today; this time is exclusive of procedural time. Quality VTE Deep Vein Thrombosis/Pulmonary Embolism Present on Admission: No
[2021-02-20] MEDS: CEFDINIR 300 MG CAPSULE PO (21:03)
[2021-02-21] VITALS (10 sets, daily range): BP systolic 95–147; BP diastolic 44–74; PULSE 61–90; RESP 14–17; TEMP 27.7–36.8; O2SAT 95–99
[2021-02-21] MEDS: MIDODRINE HCL 5 MG TABLET PO ×2 (05:35→12:10)
[2021-02-21] MEDS: dexAMETHasone 4 MG TABLET PO (07:06)
[2021-02-21] MEDS: FISH OIL 1,000 MG CAPSULE 1000 MG PO (10:18)
[2021-02-21] MEDS: CEFDINIR 300 MG CAPSULE PO (10:18)
[2021-02-21] MEDS: ENOXAPARIN 40 MG/0.4 ML SYRINGE SUBCUT (10:18)
[2021-02-21] MEDS: CLOPIDOGREL 75 MG TABLET PO (10:18)
[2021-02-21] MEDS: ASPIRIN EC 81 MG TABLET PO (10:18)
[2021-02-21] MEDS: NIACIN 500 MG TABLET PO (10:38)
--- NOTE | 2021-02-21 11:09 | PT.IPTN ---
Current Diagnoses Chest pain, unspecified (02/16/21) Physical Therapy Treatment Note M2 PT-IP Current Condition Start: 02/17/21 13:13 Freq: NEEDED Status: Active Protocol: Document 02/18/21 10:57 SP (Rec: 02/18/21 14:48 SP [id number]) Physical Therapy Current Condition Current Condition Evaluation Date 02/17/21 Treatment Diagnosis chest pain; difficulty in walking Onset Date 02/16/21 M3 PT-IP Subjective Start: 02/17/21 13:13 Freq: NEEDED Status: Active Protocol: Document 02/21/21 10:44 KS (Rec: 02/21/21 12:44 KS [id number]) Subjective Physical Therapy Visit Type Type Treatment Note Visit Start Time 10:44 Visit Stop Time 11:09 Total Visit Minutes 25 Number of CYTOTECHNOLOGIST/HISTOTECHNOLOGIST Visits 4 Physical Therapy Visit Comments Patient Comments Pt agreeable to work w/ therapy. M4 PT-IP Mobility and Gait Start: 02/17/21 13:13 Freq: NEEDED Status: Active Protocol: Document 02/21/21 10:44 KS (Rec: 02/21/21 12:44 KS [id number]) PT-Bed Mobility Assessment Supine to Sit Supine to Sit Contact Guard Assistance,1 Person Assistance,Bedrails Sit to Supine Sit to Supine Moderate Assistance,1 Person Assistance,Head of Bed Elevated Scooting Scooting to Edge of Bed Contact Guard Assistance PT-Transfer Assessment Sit to and From Stand Sit to and from Stand Contact Guard Assistance,1 Person Assistance,Use of Upper Extremities Equipment Transfer Assistive Device Gait Belt,Front Wheeled Walker Orthotic/Prosthetic Devices or Brace: No Transfers Transfer Destination Bed Transfer Technique pt ambulated w/ FWW Transfer Ability Level of Assist Moderate Assistance,1 Person Assistance,Use of Upper Extremities Comments Mobility Comments Pt in bed upon arrival from therapy reporting fatigue. BP: 135/60 in supine. Pt sup<>sit CGA w/ use of bed rails, BP: 107/53 sitting. Pt able to scoot EOB CGA. CGA and cues for hand placement for sit<> stand w/ FWW. Pts BP: 102/49 standing. She then performed [address], denied dizziness and ambulated ~30 ft around room w/ FWW CGA . She reported fatigue and returne dto bedside, BP: 98/44 in standing. Mod A for sit<> sup for LE assistance into bed . BP: 139/48 supine. Pt left in bed w/ all needs in reach and bed alarm on. Gait Assessment Gait Gait Assistance Required: Contact Guard Assist Assistive Devices Assistive Device Gait Belt,Front Wheeled Walker Orthotic/Prosthetic Devices or Brace: No Gait Deviations General Gait Pattern Decreased Stride Length, Decreased Feet Clearance, Narrow Based Gait Factors Limiting Gait Function Factors Limiting Gait Function Decreased Activity Tolerance, Decreased Strength,Poor Balance,Poor Safety Awareness Comments Gait Comments Pt only able to tolerate ~30 ft ambulation w/ FWW due to fatigue, CGA and cues for FWW management. Stair Climbing Assessment Comments Stair Climbing Comments Unable due to low tolerance for activity and low BP. PT-Balance Assessment Sitting Balance and Reactions Static Sitting Balance Ability Fair Dynamic Sitting Balance Ability Fair Standing Balance and Reactions Static Standing Balance Ability Fair Dynamic Standing Balance Ability Fair Device Used FWW M5 PT-IP Objective Assessments Start: 02/17/21 13:13 Freq: NEEDED Status: Active Protocol: Document 02/17/21 11:30 AB (Rec: 02/17/21 13:27 AB [id number]) Orientation Orientation/Cognition Level of Alertness Alert Orientation Name Safety Awareness Decreased Safety Awareness Memory Description Short Term Impaired Gross Range of Motion Lower Extremity ROM Assessment Within Functional Limits Impairments c/o LE tightness with increase muscle guarding with movement Strength Comments Strength Comments instructed pt to obtain MMT on BLE but pt tends to move LE upwards instead of pushing when instructed; pt stated that she cannot move her legs at all and that she needs assistance Muscle Tone Muscle Tone WNL Yes M6 PT-IP Treatment Start: 02/17/21 13:13 Freq: NEEDED Status: Active Protocol: Document 02/21/21 10:44 KS (Rec: 02/21/21 12:44 KS [id number]) Physical Therapy Treatment Exercises Exercises Ankle Pumps,Gluteal Sets,Quad Sets Education Education Provided Safety M7 PT-IP Assessment and Plan Start: 02/17/21 13:13 Freq: NEEDED Status: Active Protocol: Document 02/21/21 10:44 KS (Rec: 02/21/21 12:44 KS [id number]) PT Summary Assessment and Plan Potential Rehabilitation Potential Good Status of Condition at Evaluation Evolving Summary Impairments Pain,ROM,Strength,Balance, Coordination,Sensation,Tone, Cognition,Bed Mobility, Transfers,Gait,Activity Tolerance Progress Towards Goals Slow Progress due to Medical Issues,Slow Progress due to Activity Tolerance Assessment Summary Pt BP still low, but at least higher today and she denied dizziness. She was able to ambulate around her room w/ FWW, but reported fatigue following. CGA for getting out of bed, but unable to elevate her own legs to get back into bed, requiring Mod A. She has stairs at home, which is currently unsafe to assess due to weakness and low BP. Recommending SNF to improve safety and functional independence. Goals Bed Mobility Goal Standby Assistance Transfer Goal Standby Assistance,Front Wheeled Walker Gait Goal Standby Assistance,Front Wheel Walker Gait Distance 150 Other Goals up/down 3 steps 1 rail CGA Days to Meet Goals 10 Frequency of Treatment Frequency Of Treatment Once a Day Treatment Plan Physical Therapy Treatment Plan Bed Mobility Training,Transfer Training,Gait Training, Therapeutic Exercise,Balance Retraining,Discharge Planning, Neuromuscular Re-ed, Coordination Retraining,Manual Therapy Other Recommendations and Next Treatment check orthostatic BPs, LE ex, Focus bed mob, transfers, gait further distance if safe. Will need assess stair mgt for safe DC home when able. Precautions Other Precautions falls Recommendations To Nursing Amount of Assist Needed 1 Person Assist Discharge Recommendations PT Discharge Recommendations Home with 24/ Assist Available,SNF Rehab Transportation Needs at Discharge Private Vehicle,Wheelchair/ Cabulance
--- NOTE | 2021-02-21 11:21 | CM.DPC ---
DCP continued: Luciano called [facility] to check on SNF auth. Spoke with meacham who stated they didn't know the patient was here. Patient just DC from [facility] on the 02/16/21 and came here same day. patient was denied at [facility] for a SNF so she doesn't believe she will be approved for a SNF now. CM faxed clinicals over to them with the H&P and current progress note for them to review. jared JASON has noted in the registration mode that she sent clinicals to them since she arrived. Luciano spoke with patient who stated she doesn't want a SNF and wants to go home with [facility] that was set up from [facility] prior to her DC from there. CM Called [facility] and they agree that they have the patients information ready to go just need a DC summary from us when the patient DC from the hospital. CM department will follow and fax the DC summary over when it is ready. Jewell Gray RNmanager valuation
--- NOTE | 2021-02-21 13:10 | P.DS_ITS ---
History of Present Illness History of Present Illness Date Patient Seen: 02/21/21 Chief complaint: chest pain, LT arm hurts Narrative: History of Present Illness History of Present Illness Date Patient Seen:?02/16/21 Time Patient Seen:?19:49 Narrative: Kay Robles is a 85 female with a history of brain aneurysm with coil placed, pulmonary embolism, [place], atrial fibrillation on only aspirin, hyperlipidemia, hypertension who is here with granddaughter.? Complaints 2 days off and on substernal chest pressure pain lasting 10 min at a time with left arm discomfo rt.? The patient also notes ongoing dizziness upon standing, and during standing.? Patient's granddaughter notes increased confusion and impaired cognitive function over the last week or so. Patient also complains of diaphoresis and dyspnea with chest pressure, gets very tired and winded when walking and on exertion.? Not had stress test echocardiogram over 5 years.?Past history of atrial fibrillation with Coumadin use however has not been on it for many years.? Primary care had taken her off of it and placed her on aspirin 325 mg daily.? She did take it this morning.? Upon admit interview patient is having no chest pain.? Seen by primary care yesterday for left arm discomfort but no chest pain yesterday.? Patient states that she takes only a laxative daily and no longer take Lipitor, Coumadin, nor blood pressure medication.? Patient denies dysuria frequency, urgency, but does have positive odorous urine, denies hematemesis, hematuria, does have occasional bleeding from hemorrhoids due to chronic constipation. Patient presented to the ED with a BP of 194/79, upon admit temp 97.1?, BP 181/79, HR 51, R 24, O2 saturation 99% on room air patient is resting comfortably in bed without chest pain at this time.? Patient's CBC-WNL, chemistries sodium 135, GFR 56.6 all other chemistry and liver panel WNL, troponin WNL, proBNP 464, chest x-ray is negative for acute cardiopulmonary processes.? Patient's EKG demonstrated sinus bradycardia with a rate of 59, left axis deviation minimal voltage criteria for LVH, nonspecific ST abnormality. Heart Score: 4 moderate, NIH:0 patient to be admitted for chest pain rule out with hypertensive urgency versus stroke. Discharge Providers Provider Date of admission: 02/16/21 20:44 Discharge Date: 02/21/21 Consults: 02/16/21 20:19 Consult to Physical Therapy Evaluate & Treat Comment: dizziness upon standing/Fall risk Physician Instructions: Evaluate and Treat 02/19/21 12:46 Consult to Home Health Routine Comment: Reason For Exam: Home health upon DC Discharge provider: Jann Rodriges DO Summary Hospital Course Discharge Diagnosis: ATYPICAL CHEST PAIN.? RESOLVED.? NO SIGN OF ACS. ? STRESS TEST? WAS NEGATIVE ORTHOSTATIC HYPOTENSION.? CAUSE IS UNCLEAR. RESOLVED GRAM-NEGATIVE UTI.? DISCHARGED ON ANTIBIOTICS PE PER HISTORY Hospital Course: THIS IS A VERY PLEASANT 85-YEAR-OLD FEMALE STARTED UNDERLYING DEMENTIA IN PHYSICAL DECONDITIONING PRESENTED TO THE HOSPITAL WITH CHEST PAIN. ATYPICAL CHEST PAIN WITH SUSPECTED. ACS WAS RULED OUT WITH SERIAL TROPONIN CHECKS. STRESS TESTING WAS ORDERED AND NOT SHOW ANY SIGNIFICANT ABNORMALITIES. SHE DID HAVE SOME INSTANCE OF ORTHOSTATIC BLOOD PRESSURE WHICH WAS NOTED VITAL SIGNS BY NURSING. PATIENT ON MIDODRINE FOR COUPLE DAYS. BUT THIS WOULD NOT BE ORDERED OUTPATIENT DUE TO LIMITED MONITORING PATIENT BLOOD PRESSURE WILL NEED TO BE CHECKED OFTEN WHILE AT HOME. IF NEEDED, MIDODRINE COULD BE ORDERED BY HER PRIMARY CARE PHYSICIAN AT THAT TIME. SHE WAS ORDERED A NATHANIEL HOSE TO BE WORN TO THE LOWER EXTREMITIES AT ALL TIMES DURING THE DAY AND REMOVE AT NIGHT. ALSO RECOMMENDED TO STAY WELL HYDRATED. SHE ALSO WAS TREATED FOR URINARY TRACT INFECTION. SHE WILL BE CONTINUED ON CEFDINIR FOR ANOTHER 3 DAYS AFTER DISCHARGE. ADDITIONAL MANAGEMENT WILL BE DEFERRED TO OUTPATIENT PROVIDERS. PATIENT TO FOLLOW-UP PRIMARY CARE PHYSICIAN WITHIN 1-2 WEEKS HER ACTIVITIES TOLERATED. HOWEVER FALL PRECAUTION TO BE MAINTAINED AT ALL TIMES CARDIAC DIET Status at Discharge Cognitive/behavioral status at discharge: oriented Functional status at discharge: independent ambulation Overall status at discharge: patient is progressing back to baseline Time Spent with Patient Time spent: Greater than 30 minutes Exam Vital Signs (past 8 hours): - 02/21/21 08:00 02/21/21 10:00 02/21/21 10:05 Temperature 96.7 F L Pulse Rate 86 Pulse Rate [Orthostatic Lying] 67 Pulse Rate [Orthostatic Sitting] 75 Pulse Rate [Orthostatic Standing] 86 Respiratory Rate 17 Blood Pressure 124/59 L Blood Pressure [Orthostatic Lying] 146/66 H Blood Pressure [Orthostatic Sitting] 124/59 L Blood Pressure [Orthostatic Standing] 104/44 L Pulse Oximetry 99 96 02/21/21 10:23 02/21/21 12:00 02/21/21 12:25 Temperature 98.2 F Pulse Rate 82 Pulse Rate [Orthostatic Lying] Pulse Rate [Orthostatic Sitting] Pulse Rate [Orthostatic Standing] Respiratory Rate 16 Blood Pressure 147/61 H Blood Pressure [Orthostatic Lying] Blood Pressure [Orthostatic Sitting] Blood Pressure [Orthostatic Standing] Pulse Oximetry 96 99 95 Oxygen Delivery Method Room Air Oxygen Flow Rate 0 Narrative Exam Narrative: NO ACUTE DISTRESS.? PATIENT IS ALERT ORIENTED X3.? APPEARS STATED AGE HEAD ATRAUMATIC NORMOCEPHALIC NECK : SUPPLE WITHOUT ADENOPATHY NO CAROTID BRUITS EYE:? EOMI, PERRLA, NORMAL CONJUNCTIVA; NO JAUNDICE CHEST:? REGULAR RATE.? ? NO RUBS.? PMI IS NON DISPLACED.? NORMAL S1-S2 PULMONARY:? DECREASED BS OVER THE BASES.? MILD BIBASILAR CRACKLES NOTED; NO INCREASED DULLNESS TO PERCUSSION ABDOMEN:? SOFT.? NONTENDER.? NONDISTENDED.? BOWEL SOUNDS ARE PRESENT IN ALL 4 QUADRANTS.? NO MASS. EXTREMITIES: NO EDEMA..? NO CYANOSIS CLUBBING NOTED. NEURO:? CRANIAL NERVES 2-12 GROSSLY INTACT. NO FOCAL NEUROLOGICAL DEFICIT NOTED. MSK:? NORMAL RANGE OF MOTION FOR AGE.? NO JOINT EFFUSION. SKIN:? FAIR SKIN TURGOR FOR AGE.? NO RASH :? NORMAL EXTERNAL GENITALIA. PSYCH :? APPROPRIATE MOOD AND AFFECT.? 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 Family History Mother Bipolar 1 disorder Father Cancer Sister Cancer Social History household members: other Smoking Status: Never smoker alcohol intake: never Discharge Plan Discharge Plan Patient Disposition: Home Health Service Provider Discharge Comment: FOLLOW-UP WITH PRIMARY CARE PHYSICIAN WITHIN 7-14 DAYS Nursing Discharge Comment: PLEASE DISCHARGE PATIENT UNDER THE CARE OF A HER GRANDDAUGHTER Discharge orders & Medications Prescriptions: New aspirin 81 mg Tablet,Delayed Release (Dr/Ec) 81 mg PO DAILY Qty: 60 0RF dexamethasone 4 mg Tablet 4 mg PO BIDWM Qty: 6 0RF niacin 500 mg Tablet 500 mg PO DAILY Qty: 60 0RF cefdinir 300 mg Capsule 300 mg PO BID Qty: 6 0RF Fish Oil 340-1,000 mg Capsule 1 cap PO DAILY Qty: 60 0RF Continued polyethylene glycol 3350 [Miralax] 17 gram/dose Powder See Rx Instructions .ROUTE .COMPLEX 0RF Rx Instructions: Pt normally takes it at 0600 Discontinued aspirin 325 mg Tablet 325 mg PO DAILY 0RF Diet/Activity/Treatments Diet: Low-fat and Low-cholesterol Activity: TOLERATED Skin/Wound/Dressing Care Report to your healthcare provider any signs of infection, such as:: chills, fever, night sweats and increased pain Quality VTE Deep Vein Thrombosis/Pulmonary Embolism Present on Admission: No
--- NOTE | 2021-02-21 13:28 | CM.DPNOTE ---
DCP: Patient is to be discharging home today. Called [facility], and faxed DC Summary. Eliana Danielle RN/Sugar Reprocess Operator Head
--- NOTE | 2021-02-21 17:49 | PC.NURSE ---
Discharge order to home with home health per provider. Pt stated she thought [facility] staff would provide daily in-home care. This display card writer clarified with patient and grand daughter Nan that [facility] staff will not be going to her home but [facility] home health will be set-up by Care Management Dept. Pt and family verbalized understanding of all instructions. IV Removed, Pt dressed. Escorted out to private vehicle via w/c. Pt left in stable condition with all personal belongings.
== END 2021-02-21 17:10 | disposition home health service (06) | DRG 312 ==
LOC: ED 18:45 → AC 02-17 05:09
PROVIDERS: Emergency Medicine; Internal Medicine; Admitting Provider Nurse Practitioner Family; Emergency Provider Emergency Medicine; Visit Provider Nurse Practitioner Family
DX: I95.1 Orthostatic hypotension (principal); I48.20 Chronic atrial fibrillation, unspecified; N39.0 Urinary tract infection, site not specified; R07.89 Other chest pain; I16.0 Hypertensive urgency; E78.5 Hyperlipidemia, unspecified; K59.09 Other constipation; I25.2 Old myocardial infarction; Z86.711 Personal history of pulmonary embolism; B96.20 Unspecified Escherichia coli [E. coli] as the cause of diseases classified elsewhere; Z20.822 Contact with and (suspected) exposure to COVID-19
CPT/HCPCS: 36415; 70450; 71045; 71275; 73030; 78452; 80053; 80061; 81001; 82533; 82550; 83690; 83735; 83880; 84145; 84443; 84484; 85025; 85379; 85610; 85730; 87040; 87077; 87086; 87186; 87635; 93005; 93010; 93017; 93306; 94760; 97110; 97116; 97162; 97530; 99284; 99285; C9803; A9270; A9502; J0696; J0834; J1100; J1650; J2765; J2785; Q9967

== ENCOUNTER 2021-03-31 12:28 | Emergency (ER) | payer OTHER, SELFPAY ==
[2021-02-16 23:00] VITALS: BMI 25.6
[2021-03-31] VITALS (22 sets, daily range): BP systolic 92–187; BP diastolic 50–80; PULSE 59–86; RESP 14–23; TEMP 36.2–36.7; O2SAT 94–100
--- NOTE | 2021-03-31 12:50 | DI.RAD.S_ITS ---
PROCEDURE: XR CHEST 1V INDICATIONS: chest pain TECHNIQUE: One view of the chest was acquired. COMPARISON: [facility], CR, XR CHEST 1V, 02/17/2021, 17:03. FINDINGS: Surgical changes and devices: None. Lungs and pleura: Lungs are clear. No pleural effusions or pneumothorax. Mediastinum: Mediastinal contours appear normal. Heart size is normal. Bones and chest wall: No suspicious bony lesions. Overlying soft tissues appear unremarkable. IMPRESSION: No acute cardiopulmonary disease. Dictated by: Lori Carballo M.D. on 03/31/2021 at 13:47 Approved by: Lori Carballo M.D. on 03/31/2021 at 13:47
[2021-03-31] MEDS: SODIUM CHLORIDE 0.9% 1,000 ML 1000 ML IV (14:35)
--- NOTE | 2021-03-31 14:46 | ED_ITS ---
HPI - Weakness General Chief complaint: Weakness Stated complaint: FLUCTUATING BLOOD PRESSURE DIZZY CONFUSED Time Seen by Provider: 03/31/21 14:06 Source: patient Mode of arrival: Ambulatory History of Present Illness HPI Narrative: Patient is an 85-year-old female with history of memory impairment, brain aneurysm with coil placed, pulmonary embolism, [place], atrial fibrillation on aspirin, hyperlipidemia, hypertension presenting today with blood pressure fluctuation and dizziness. She is on Midodrine, she was initially started on 5 mg however was increased to 10 mg 2 weeks ago. She is followed by cardiology Dr. Jarrett from [facility]. states today her blood pressure went to the 70 she was very dizzy and lightheaded. No falls she is overall very poor historian. She currently denies any pain. She says that while sitting here she has no complaints. She is more confused than normal according to the . She has had a gradual decline but today seems a little bit more off. No painful urination but she is having some frequent urination. No nausea or vomiting. Granddaughter states that her cognition has declined significantly or last 2-3 days. She says last week is she was much sharper. Last night EMS was called they wanted to transport her to the emergency department however she adamantly declined she appeared to understand what they were saying. Today they convinced her to come in for evaluation. She lives up in [place], but makes this [facility] this was the only hospital she agreed to come to. They did talk with the primary care provider who recommended she be evaluated for possible infect ion. Related Data Home Medications Medication Instructions Recorded Confirmed polyethylene glycol 3350 17 See Rx Instructions .ROUTE .COMPLEX 02/17/21 02/17/21 gram/dose oral powder (Miralax) Previous Rx's Medication Instructions Recorded aspirin 81 mg tablet,delayed 81 mg PO DAILY #60 tab 02/21/21 release cefdinir 300 mg capsule 300 mg PO BID #6 cap 02/21/21 dexamethasone 4 mg tablet 4 mg PO BIDWM #6 tab 02/21/21 niacin 500 mg tablet 500 mg PO DAILY #60 tab 02/21/21 omega-3 fatty acids-fish oil 340 1 cap PO DAILY #60 cap 02/21/21 mg-1,000 mg capsule (Fish Oil) cephalexin 500 mg capsule 500 mg PO BID 7 Days #14 cap 03/31/21 Allergies Allergy/AdvReac Type Severity Reaction Status Date / Time codeine AdvReac Mild Vomiting Verified 02/18/21 14:42 Any pain medicine Allergy Uncoded 02/16/21 17:28 Review of Systems Review of Systems ROS Unobtainable: All systems reviewed & are unremarkable except as noted in HPI and below Constitutional Constitutional: Denies chills, Denies fatigue and Denies fever(s) Eyes Eyes: Denies blurry vision Cardiovascular Cardiovascular: Reports as per HPI, Denies chest pain, Denies irregular heart rhythm and Reports lightheadedness Respiratory Respiratory: Denies change in phlegm color and Denies cough Gastrointestinal Gastrointestinal: Denies abdominal pain, Denies nausea and Denies vomiting Genitourinary Genitourinary: Denies urinary incontinence Musculoskeletal Musculoskeletal: Denies myalgias and Denies deformity Integumentary/Breasts Skin/Breast: Denies rash and Denies skin pain Endocrine Endocrine: Denies fatigue Patient History Medical History (Updated 03/31/21 @ 20:09 by Briseida Campos DO) Brain aneurysm History of atrial fibrillation History of hyperlipidemia History of hypertension History of myocardial infarction History of pulmonary embolus (PE) Surgical History (Updated 02/16/21 @ 20:38 by TIGIST Wiggins-) History of cholecystectomy History of knee replacement 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 Family History Mother Bipolar 1 disorder Father Cancer Sister Cancer Social History household members: other Smoking Status: Never smoker alcohol intake: never Smoking Status: Never smoker Substance Use Type: does not use Exam Initial Vital Signs Initial Vital Signs: Vital Signs Temperature 97.2 F L 03/31/21 12:45 Pulse Rate 80 03/31/21 12:45 Respiratory Rate 17 03/31/21 12:45 Blood Pressure 140/73 03/31/21 12:45 Pulse Oximetry 97 03/31/21 12:45 GENERAL: Alert 85-year-old female mildly confused but no acute distress HEENT: Head atraumatic,EOMI, pupils reactive, face symmetric, moist mucous membranes CARDIOVASCULAR: Regular rate and rhythm without murmurs, rubs or gallops. RESPIRATORY: Breath sounds equal bilaterally, no wheezes rales or rhonchi. ABDOMEN: Soft, nontender. Normoactive bowel sounds all 4 quadrants. No guarding or rebound. EXTREMITIES: Normal range of motion, no clubbing or edema. Neurovascularly intact NEUROLOGICAL: Alert and oriented x3.Normal gait and speech. Tenderizer Tender strength equal bilaterally SKIN: Warm, dry, no laceration, no petechiae, no rashes or lesions. Course Orders Ordered: ED Orders 03/31/21 12:50 XR chest 1V Stat EKG-12 Lead Stat 03/31/21 14:35 Complete Blood Count AUTO DIFF Stat Comprehensive Metabolic Panel Stat Lactate (Lactic Acid) Stat Lipase Stat Magnesium Stat Procalcitonin Stat Troponin & CK Cardiac Panel Stat 03/31/21 16:35 Urine Culture Stat Urine Microscopic Stat 03/31/21 17:15 CT head/brain wo con Stat 03/31/21 18:10 COVID19 -Nasal swab/Pre-Proc Stat 03/31/21 19:24 Consult to [facility] [employer] [facility] - Electrologist Stat Discontinued Medications Acetaminophen (Acetaminophen 325 Mg Tablet) 650 mg PO NOW ONE Stop: 03/31/21 16:46 Last Admin: 03/31/21 16:50 Dose: 650 mg Documented by: FATOUMATA Sodium Chloride (Normal Saline 0.9%) 1,000 mls @ 1,000 mls/hr IV BOLUS ONE Stop: 03/31/21 15:06 Last Infusion: 03/31/21 18:29 Dose: 0 mls/hr Documented by: Admin: 03/31/21 14:35 Dose: 1,000 mls/hr Documented by: MIRIAM Ceftriaxone Sodium 1,000 mg/ (Sodium Chloride) 100 mls @ 200 mls/hr IV NOW ONE Stop: 03/31/21 17:18 Last Infusion: 03/31/21 18:29 Dose: 0 mls/hr Documented by: Admin: 03/31/21 17:35 Dose: 200 mls/hr Documented by: BLANCAONELeonides Midodrine (Midodrine Hcl 5 Mg Tablet) 5 mg PO NOW ONE Stop: 03/31/21 19:02 Last Admin: 03/31/21 19:28 Dose: 5 mg Documented by: MIRIAM Vital Signs Vital signs: Vital Signs - 8 hr 03/31/21 12:45 03/31/21 12:50 03/31/21 14:13 Temperature 97.2 F L Pulse Rate 80 82 Pulse Rate [Orthostatic Lying] Pulse Rate [Orthostatic Sitting] 80 Pulse Rate [Orthostatic Standing] 86 Respiratory Rate 17 16 Blood Pressure 140/73 165/73 H Blood Pressure [Orthostatic Lying] Blood Pressure [Orthostatic Sitting] 140/73 Blood Pressure [Orthostatic Standing] 106/73 Pulse Oximetry 97 94 03/31/21 14:18 03/31/21 14:30 03/31/21 14:43 Temperature 98.0 F Pulse Rate 79 82 Pulse Rate [Orthostatic Lying] Pulse Rate [Orthostatic Sitting] Pulse Rate [Orthostatic Standing] Respiratory Rate 18 16 Blood Pressure 151/70 H 146/70 H Blood Pressure [Orthostatic Lying] Blood Pressure [Orthostatic Sitting] Blood Pressure [Orthostatic Standing] Pulse Oximetry 96 96 03/31/21 15:00 03/31/21 15:30 03/31/21 16:00 Temperature Pulse Rate 76 68 64 Pulse Rate [Orthostatic Lying] Pulse Rate [Orthostatic Sitting] Pulse Rate [Orthostatic Standing] Respiratory Rate 18 16 15 Blood Pressure 134/63 154/72 H 182/80 H Blood Pressure [Orthostatic Lying] Blood Pressure [Orthostatic Sitting] Blood Pressure [Orthostatic Standing] Pulse Oximetry 94 97 98 03/31/21 16:30 03/31/21 16:31 03/31/21 17:00 Temperature Pulse Rate 73 69 68 Pulse Rate [Orthostatic Lying] Pulse Rate [Orthostatic Sitting] Pulse Rate [Orthostatic Standing] Respiratory Rate 14 21 19 Blood Pressure 184/76 H 187/77 H Blood Pressure [Orthostatic Lying] Blood Pressure [Orthostatic Sitting] Blood Pressure [Orthostatic Standing] Pulse Oximetry 99 99 99 03/31/21 17:33 03/31/21 18:00 03/31/21 18:30 Temperature Pulse Rate 71 66 64 Pulse Rate [Orthostatic Lying] Pulse Rate [Orthostatic Sitting] Pulse Rate [Orthostatic Standing] Respiratory Rate 23 21 19 Blood Pressure Blood Pressure [Orthostatic Lying] Blood Pressure [Orthostatic Sitting] Blood Pressure [Orthostatic Standing] Pulse Oximetry 100 97 97 03/31/21 19:00 03/31/21 19:16 03/31/21 19:19 Temperature Pulse Rate 63 59 L 70 Pulse Rate [Orthostatic Lying] Pulse Rate [Orthostatic Sitting] Pulse Rate [Orthostatic Standing] Respiratory Rate 21 22 18 Blood Pressure 156/70 H 127/60 Blood Pressure [Orthostatic Lying] Blood Pressure [Orthostatic Sitting] Blood Pressure [Orthostatic Standing] Pulse Oximetry 98 97 96 03/31/21 19:21 03/31/21 19:24 03/31/21 19:56 Temperature Pulse Rate 67 Pulse Rate [Orthostatic Lying] 60 Pulse Rate [Orthostatic Sitting] 69 Pulse Rate [Orthostatic Standing] 71 Respiratory Rate 17 Blood Pressure 92/50 L Blood Pressure [Orthostatic Lying] 156/70 H Blood Pressure [Orthostatic Sitting] 127/60 Blood Pressure [Orthostatic Standing] 92/50 L Pulse Oximetry 97 98 MDM - Weakness Lab Data Result diagrams: 03/31/21 14:35 03/31/21 14:35 Labs: Lab Results 03/31/21 03/31/21 03/31/21 Range/Units 14:35 14:35 14:35 WBC 6.6 (4.5-11.0) X10^3/uL RBC 3.95 L (4.0-5.2) X10^6/uL Hgb 12.6 (12.0-16.0) g/dL Hct 36.8 (36-46) % MCV 93.3 (80-100) fL MCH 31.8 (26-34) PG MCHC 34.1 (30-36) % RDW 13.6 (11.6-14.8) % Plt Count 246 (150-400) X10^3/uL Neut % (Auto) 65.6 (50-75) % Lymph % (Auto) 27.5 (25-40) % [place] % (Auto) 4.3 (3-14) % Eos % (Auto) 1.9 L (2-4) % Baso % (Auto) 0.7 (0-2) % Neut # (Auto) 4300 (1508-4565) /uL Lymph # (Auto) 1800 (2271-0785) /uL [place] # (Auto) 300 (0-900) /uL Eos # (Auto) 100 (0-450) /uL Baso # (Auto) 0 (0-100) /uL Sodium 130 L (137-145) mmol/L Potassium 4.7 (3.4-5.1) mmol/L Chloride 99 (98-107) mmol/L Carbon Dioxide 23 (22-32) mmol/L BUN 16 (7-17) mg/dL Creatinine 0.90 (0.52-1.04) mg/dL Estimated GFR 59.5 L (>60) mL/min BUN/Creatinine Ratio 17.8 (6-22) Glucose 176 H (80-110) mg/dL Lactate 1.8 (0.7-2.1) mmol/L Calcium 9.7 (8.4-10.2) mg/dL Magnesium 2.0 (1.6-2.3) mg/dL Total Bilirubin 0.6 (0.2-1.3) mg/dL AST 31 (14-36) IU/L ALT 16 (<35) IU/L Alkaline Phosphatase 69 (38-126) U/L Total Creatine Kinase 61 (30-135) U/L CK-MB (CK-2) TNP CK-MB (CK-2) Rel Index TNP Troponin I < 0.012 (0.01-0.034) ng/mL Total Protein 7.5 (6.3-8.2) g/dL Albumin 4.5 (3.5-5.0) g/dL Globulin 3.0 (1.7-4.1) g/dL Albumin/Globulin Ratio 1.5 (1.0-2.8) Lipase 106 (23-300) U/L Procalcitonin (<0.5) ng/mL Urine RBC (0-5/HPF) Urine WBC (0-5/HPF) Ur Squamous Epith Cells (0-5/HPF) Urine Bacteria (None) Ur Culture Indicated? SARS-CoV-2 (PCR) (Negative) 03/31/21 03/31/21 03/31/21 Range/Units 14:35 16:35 18:10 WBC (4.5-11.0) X10^3/uL RBC (4.0-5.2) X10^6/uL Hgb (12.0-16.0) g/dL Hct (36-46) % MCV (80-100) fL MCH (26-34) PG MCHC (30-36) % RDW (11.6-14.8) % Plt Count (150-400) X10^3/uL Neut % (Auto) (50-75) % Lymph % (Auto) (25-40) % [place] % (Auto) (3-14) % Eos % (Auto) (2-4) % Baso % (Auto) (0-2) % Neut # (Auto) (8919-0763) /uL Lymph # (Auto) (4046-2477) /uL [place] # (Auto) (0-900) /uL Eos # (Auto) (0-450) /uL Baso # (Auto) (0-100) /uL Sodium (137-145) mmol/L Potassium (3.4-5.1) mmol/L Chloride (98-107) mmol/L Carbon Dioxide (22-32) mmol/L BUN (7-17) mg/dL Creatinine (0.52-1.04) mg/dL Estimated GFR (>60) mL/min BUN/Creatinine Ratio (6-22) Glucose (80-110) mg/dL Lactate (0.7-2.1) mmol/L Calcium (8.4-10.2) mg/dL Magnesium (1.6-2.3) mg/dL Total Bilirubin (0.2-1.3) mg/dL AST (14-36) IU/L ALT (<35) IU/L Alkaline Phosphatase (38-126) U/L Total Creatine Kinase (30-135) U/L CK-MB (CK-2) CK-MB (CK-2) Rel Index Troponin I (0.01-0.034) ng/mL Total Protein (6.3-8.2) g/dL Albumin (3.5-5.0) g/dL Globulin (1.7-4.1) g/dL Albumin/Globulin Ratio (1.0-2.8) Lipase (23-300) U/L Procalcitonin 0.06 (<0.5) ng/mL Urine RBC 0-1/hpf (0-5/HPF) Urine WBC 1-5/hpf (0-5/HPF) Ur Squamous Epith Cells 0-1 /hpf (0-5/HPF) Urine Bacteria None seen (None) Ur Culture Indicated? Specimen cultured SARS-CoV-2 (PCR) Negative (Negative) Urine Dip Bedside Urine Glucose Negative Bedside Urine Bilirubin - Negative Bedside Urine Ketone - Negative Urine Specific [place] 1.015 Bedside Urine Occult Blood - Negative Bedside Urine pH 6.0 Bedside Urine Protein - Negative Bedside Urine Urobilinogen - Negative Bedside Urine Nitrite - Negative Bedside Urine Leukocytes + [address] scan - head: Radiologist Impression: PROCEDURE:? CT HEAD/BRAIN WO CON ? INDICATIONS:? very confused ? TECHNIQUE:? Noncontrast 4.5 mm thick angled axial sections acquired from the foramen magnum to the vertex, with coronal and sagittal reformats.? For radiation dose reduction, the following was used:? automated exposure control, adjustment of mA and/or kV according to patient size.? ? COMPARISON:? [facility], CT, CT HEAD/BRAIN WO CON, 02/16/2021, 20:37. ? FINDINGS:? Image quality:? Excellent.? ? CSF spaces:? Basal cisterns are patent.? No extra-axial fluid collections.? The ventricles are symmetric in size and shape.? ? Brain:? Endovascular aneurysm coil mass noted in the anterior left margin of the suprasellar cistern is stable compared to prior exam.? No intracranial bleeds or masses.? There is cerebral volume loss for age, with resultant ventricular and sulcal prominence.? There are periventricular and deep white matter chronic small vessel ischemic changes.? There is intracranial internal carotid artery atherosclerosis.? ? Skull and face:? Calvarium and visualized facial bones appear intact, without suspicious lesions.? ? Sinuses:? Visualized sinuses and mastoids are clear.? ? IMPRESSION:? No acute intracranial disease process. ? ? Dictated by: Chela Potter MD, PhD on 03/31/2021 at 17:41 ?? Chest x-ray: Radiologist Impression: PROCEDURE:? XR CHEST 1V ? INDICATIONS:? chest pain ? TECHNIQUE:? One view of the chest was acquired.? ? COMPARISON:? [facility], CR, XR CHEST 1V, 02/17/2021, 17:03. ? FINDINGS:? ? Surgical changes and devices:? None.? ? Lungs and pleura:? Lungs are clear.? No pleural effusions or pneumothorax.? ? Mediastinum:? Mediastinal contours appear normal.? Heart size is normal.? ? Bones and chest wall:? No suspicious bony lesions.? Overlying soft tissues appear unremarkable.? ? IMPRESSION:? No acute cardiopulmonary disease. ? ? ? Dictated by: Lori Carballo M.D. on 03/31/2021 at 13:47 ? ? ECG Data Interpretation: Normal sinus rhythm rate 72 OK interval 166 QRS [address] changes MDM Narrative Medical decision making narrative: Patient is mildly confused while talking to her her conversation varies quite a bit. Sometimes she seems to be quite with it and other times confused. Granddaughter at bedside, she was recording everything is she says. According to granddaughter a sudden onset of worsening confusion, over the last couple of days. No focal deficits.She does have leukocytes in her urine possible UTI, however no sign of sepsis. She is given 1 dose of Rocephin in the ED. She is given 1 L of fluid. She does have orthostatic hypotension she is given a L of fluid she is not wearing her compression socks she is aware that she needs to wear her compression socks but says she did get herself dressed today that she had help. Head CT is negative. 1619-Dr. Browne Cardiology with [facility] is reviewed patient's chart and is familiar with her his records she is post be on midodrine 5 mg 3 times a day were compression socks he also said could add fludrocortisone if needed. She is scheduled for an echocardiogram and event monitor April 10. She actually is aware of this and is able to tell me about it. Head CT is negative she has no focal deficits/she is given a dose of midodrine here. Daughter states that she is only sometimes compliant with her medications. Patient says that she only sometimes takes her Tylenol because of the as needed medication that she takes her other medications. She really does have fluctuating mental status which varies from sentence to sentence. There is quite a bit of family dynamics. She lives with her boyfriend in [place] however boyfriend does not want her there because for increased confusion. She can stay with granddaughter however granddaughter's mother the patient's daughter they do not get along. Social Work has been involved At this time no justification keep her in the hospital. She may need long-term placement. Discharge Plan Departure Patient Disposition: Home Clinical Impression: Acute UTI Instructions: DI for Urinary Tract Infection (UTI) Activity Restrictions/Additional Instructions: *You have been diagnosed with UTI, confusion *What to do: At this time *Continue to take medications as directed Keflex 500 mg twice a day for 7 days *Follow up with your primary care provider in 2-3 days or call [phone] *Return to ER if you should have increasing falls persistent confusion,or any new, worsening or concerning symptoms Prescriptions: New cephalexin 500 mg capsule 500 mg PO BID 7 Days Qty: 14 0RF No Action polyethylene glycol 3350 [Miralax] 17 gram/dose Powder See Rx Instructions .ROUTE .COMPLEX 0RF Rx Instructions: Pt normally takes it at 0600 aspirin 81 mg Tablet,Delayed Release (Dr/Ec) 81 mg PO DAILY Qty: 60 0RF dexamethasone 4 mg Tablet 4 mg PO BIDWM Qty: 6 0RF niacin 500 mg Tablet 500 mg PO DAILY Qty: 60 0RF cefdinir 300 mg Capsule 300 mg PO BID Qty: 6 0RF Fish Oil 340-1,000 mg Capsule 1 cap PO DAILY Qty: 60 0RF Referrals: Dale Jarrett MD [Non-Staff] -
[2021-03-31 14:48] LABS: Add Manual Diff / Slide Review NO; Basophils Absolute Auto 0 /uL (0-100); Basophils Percent Auto 0.7 % (0-2); Eosinophils Absolute Auto 100 /uL (0-450); Eosinophils Percent Auto 1.9 % (2-4); Hematocrit 36.8 % (36-46); Hemoglobin 12.6 g/dL (12.0-16.0); Lymphocytes Absolute Auto 1800 /uL (1100-4500); Lymphocytes Percent Auto 27.5 % (25-40); Mean Corpuscular HGB Conc 34.1 % (30-36); Mean Corpuscular Hemoglobin 31.8 PG (26-34); Mean Corpuscular Volume 93.3 fL (80-100); Monocytes Absolute Auto 300 /uL (0-900); Monocytes Percent Auto 4.3 % (3-14); Neutrophils Absolute Auto 4300 /uL (1500-7000); Neutrophils Percent Auto 65.6 % (50-75); Platelet Count 246 X10^3/uL (150-400); Red Blood Cell Count 3.95 X10^6/uL (4.0-5.2); Red Cell Distribution Width 13.6 % (11.6-14.8); White Blood Cell Count 6.6 X10^3/uL (4.5-11.0)
[2021-03-31 14:59] LABS: Lactate (Lactic Acid) 1.8 mmol/L (0.7-2.1)
[2021-03-31 15:00] LABS: Alanine Aminotransferase 16 IU/L (<35); Albumin 4.5 g/dL (3.5-5.0); Albumin Globulin Ratio 1.5 (1.0-2.8); Alkaline Phosphatase 69 U/L (38-126); Aspartate Aminotransferase 31 IU/L (14-36); BUN Creatinine Ratio 17.8 (6-22); Bilirubin Total 0.6 mg/dL (0.2-1.3); Blood Urea Nitrogen 16 mg/dL (7-17); Calcium 9.7 mg/dL (8.4-10.2); Carbon Dioxide 23 mmol/L (22-32); Chloride 99 mmol/L (98-107); Creatine Kinase 61 U/L (30-135); Estimated Glomerular Filt Rate 59.5 mL/min (>60); Glucose 176 mg/dL (80-110); HEMOLYSIS < 15 (0-50); Lipase 106 U/L (23-300); Potassium 4.7 mmol/L (3.4-5.1); Sodium 130 mmol/L (137-145); Total Protein 7.5 g/dL (6.3-8.2)
[2021-03-31 15:12] LABS: Troponin I < 0.012 ng/mL (0.01-0.034)
[2021-03-31 15:16] LABS: Procalcitonin 0.06 ng/mL (<0.5)
--- NOTE | 2021-03-31 15:30 | PC.NURSE ---
Patient's reports that her blood pressure drops significantly from sitting to standing. Further he reports a recent increase in medication from 5mg to 10mg of Midodrine Hcl.
[2021-03-31] MEDS: ACETAMINOPHEN 325 MG TABLET 650 MG PO (16:50)
[2021-03-31 17:07] LABS: Bacteria Urine None Seen; Culture Indicated Urine Specimen Cultured; RBC Urine 0-1/HPF (0-5/HPF); Squamous Epithelial Cell Urine 0-1 /HPF (0-5/HPF); WBC Urine 1-5/HPF (0-5/HPF)
--- NOTE | 2021-03-31 17:15 | DI.CT.S_ITS ---
PROCEDURE: CT HEAD/BRAIN WO CON INDICATIONS: very confused TECHNIQUE: Noncontrast 4.5 mm thick angled axial sections acquired from the foramen magnum to the vertex, with coronal and sagittal reformats. For radiation dose reduction, the following was used: automated exposure control, adjustment of mA and/or kV according to patient size. COMPARISON: [facility], CT, CT HEAD/BRAIN WO CON, 02/16/2021, 20:37. FINDINGS: Image quality: Excellent. CSF spaces: Basal cisterns are patent. No extra-axial fluid collections. The ventricles are symmetric in size and shape. Brain: Endovascular aneurysm coil mass noted in the anterior left margin of the suprasellar cistern is stable compared to prior exam. No intracranial bleeds or masses. There is cerebral volume loss for age, with resultant ventricular and sulcal prominence. There are periventricular and deep white matter chronic small vessel ischemic changes. There is intracranial internal carotid artery atherosclerosis. Skull and face: Calvarium and visualized facial bones appear intact, without suspicious lesions. Sinuses: Visualized sinuses and mastoids are clear. IMPRESSION: No acute intracranial disease process. Dictated by: Chela Potter MD, PhD on 03/31/2021 at 17:41 Approved by: Chela Potter MD, PhD on 03/31/2021 at 17:44
[2021-03-31] MEDS: cefTRIAXone 1,000 MG in SODIUM CHLORIDE 0.9% 100 ML 200 ML IV (17:35)
[2021-03-31 18:29] LABS: COVID19 -Nasal RAPID Negative (Negative)
[2021-03-31] MEDS: MIDODRINE HCL 5 MG TABLET PO (19:28)
--- NOTE | 2021-04-01 15:44 | CM.SWNOTE ---
GEOLOGY SCIENTIST f/u Note GEOLOGY SCIENTIST receives consult for f/u regarding patient's need for higher level of care. GEOLOGY SCIENTIST calls patient's POA/granddaughter. It is reported that patient is back at home with her partner. POA to attend patient's upcoming PCP appt and to discuss with family the need for higher level of care for patient. Last evening patient was provided Education Everytime Senior Resource guide. Via email, GEOLOGY SCIENTIST sent POA the [employer] Senior Resource guide. POA to f/u with patient's needs to access higher level of care. Chelo White, GEOLOGY SCIENTIST
== END 2021-03-31 20:08 | disposition home or self-care (01) ==
PROVIDERS: Emergency Provider Emergency Medicine
DX: N39.0 Urinary tract infection, site not specified (principal); R41.0 Disorientation, unspecified; I10 Essential (primary) hypertension; Z20.822 Contact with and (suspected) exposure to COVID-19
CPT/HCPCS: 36415; 70450; 71045; 80053; 81003; 81015; 82550; 83605; 83690; 83735; 84145; 84484; 85025; 87086; 87635; 93005; 96361; 96365; 99284; C9803; J0696

== ENCOUNTER 2023-07-09 16:38 | Emergency (ER) | payer OTHER, SELFPAY ==
[2021-02-16 23:00] VITALS: BMI 25.6
[2023-07-09] VITALS (7 sets, daily range): BP systolic 134–158; BP diastolic 64–72; PULSE 58–66; RESP 13–19; TEMP 36.4; O2SAT 95–99; BMI 24.7
--- NOTE | 2023-07-09 16:59 | DI.RAD.S_ITS ---
PROCEDURE: XR CHEST 1V INDICATIONS: chest pain TECHNIQUE: One view of the chest was acquired. COMPARISON: [facility], CT, CT ANGIO HEAD AND NECK, 07/09/2023, 17:10. [facility], CT, CT HEAD/BRAIN WO CON, 07/09/2023, 17:10. [facility], CR, XR CHEST 1V, 03/31/2021, 14:28. FINDINGS: Surgical changes and devices: None. Lungs and pleura: Mild generalized interstitial prominence can be seen. On this semiupright portable chest examination, no large pneumothorax or large pleural effusions are seen. No focal infiltrates are seen. Mediastinum: Mediastinal contours appear normal. Heart size is mildly enlarged. Bones and chest wall: No suspicious bony lesions. Overlying soft tissues appear unremarkable. IMPRESSION: Mild cardiomegaly and interstitial prominence. Mild CHF is suspected. Dictated by: Benito Doyle M.D. on 07/09/2023 at 16:44 Approved by: Benito Doyle M.D. on 07/09/2023 at 16:45
--- NOTE | 2023-07-09 16:59 | DI.CT.S_ITS ---
PROCEDURE: CT HEAD/BRAIN WO CON INDICATIONS: confusion TECHNIQUE: Noncontrast 4.5 mm thick angled axial sections acquired from the foramen magnum to the vertex, with coronal and sagittal reformats. For radiation dose reduction, the following was used: automated exposure control, adjustment of mA and/or kV according to patient size. COMPARISON: [facility], CT, CT HEAD/BRAIN WO CON, 02/16/2021, 20:37. [facility], CT, CT ANGIO HEAD AND NECK, 07/09/2023, 17:10. [facility], CR, XR CHEST 1V, 07/09/2023, 17:05. [facility], CT, CT HEAD/BRAIN WO CON, 03/31/2021, 17:27. FINDINGS: Image quality: There is artifact associated with the metallic hardware. Artifact from the metallic hardware is reduced by metal reconstruction algorithm. CSF spaces: Basal cisterns are patent. No extra-axial fluid collections. The ventricles are symmetric in size and shape. Brain: Prior aneurysm coils can be seen within the left carotid terminus region. No intracranial bleeds or masses. There is cerebral volume loss for age, with resultant ventricular and sulcal prominence. There are periventricular and deep white matter chronic small vessel ischemic changes. There is intracranial internal carotid artery atherosclerosis. Skull and face: Calvarium and visualized facial bones appear intact, without suspicious lesions. Sinuses: Visualized sinuses and mastoids are clear. IMPRESSION: No acute intracranial hemorrhage is seen. No acute intracranial pathology. Prior aneurysm coils seen involving the left carotid terminus region. Dictated by: eBnito Doyle M.D. on 07/09/2023 at 16:45 Approved by: Benito Doyle M.D. on 07/09/2023 at 16:47
--- NOTE | 2023-07-09 16:59 | DI.CT.S_ITS ---
PROCEDURE: CT ANGIO HEAD AND NECK INDICATIONS: confusion TECHNIQUE: After the administration of intravenous contrast, 1 mm thick sections acquired from the aortic arch through the [place]. 3-dimensional pfnjaen-vslbyisyj-elzuijsowr (MIP) and/or volume rendering reformats were acquired of the central intracranial vasculature and neck separately. For radiation dose reduction, the following was used: automated exposure control, adjustment of mA and/or kV according to patient size. COMPARISON: [facility], CT, CT HEAD/BRAIN WO CON, 02/16/2021, 20:37. [facility], CT, CT HEAD/BRAIN WO CON, 03/31/2021, 17:27. [facility], CT, CT HEAD/BRAIN WO CON, 07/09/2023, 17:10. FINDINGS: Image quality: There is artifact associated with the metallic hardware. Artifact from the metallic hardware is reduced by metal reconstruction algorithm. BRAIN: CSF spaces: Ventricles are normal in size and shape. Basal cisterns are patent. No extra-axial fluid collections. Brain: No significant abnormality of the brain can be seen. Skull and face: Calvarium and facial bones appear intact, without suspicious lesions. Orbits appear normal. Sinuses: Sinuses and mastoids are clear. HEAD CT ANGIOGRAPHY: Anterior circulation: Prior aneurysm coils can be seen within the left carotid terminus region. No recurrent aneurysm can be seen. Intracranial internal carotid arteries are normal in size and flow. The flow within the paired anterior cerebral arteries is normal and symmetric. The flow within the middle cerebral arteries is normal and symmetric. The anterior communicating artery is seen. No aneurysms are seen. Posterior circulation: Visualized portions of the vertebral arteries demonstrate normal caliber, and join to form a normal appearing basilar artery. There is a prominent right posterior communicating artery seen, with an accompanying diminutive right P1 segment. This is attributed to a type origin of the right posterior cerebral artery, which is considered to be a normal developmental variant of typically no clinical consequence. The flow within the posterior cerebral arteries is normal and symmetric. No aneurysms are seen. NECK CT ANGIOGRAPHY: Carotid system: The great vessels demonstrate a conventional anatomy as they arise from the aortic arch. The origins of the common carotid arteries appear patent. The common carotid arteries demonstrate normal caliber and courses. The bifurcation regions demonstrate no significant stenosis. The internal carotid arteries demonstrate normal calibers and courses. Posterior circulation: The origins of the vertebral arteries both appear widely patent. The more superior extracranial portions of both vertebral arteries also demonstrate normal courses and calibers. They join to form a normal appearing basilar artery. Soft tissues: Visualized neck soft tissues demonstrate no suspicious abnormalities. Bones: No suspicious bony lesions. Visualized cervical spine appears normally aligned. Moderate focal degenerative change can be seen at the C5-C6 level, with milder degenerative changes seen elsewhere. IMPRESSION: No significant intracranial abnormality is identified. Note is made of prior left carotid terminus aneurysm coils, without a recurrent aneurysm seen. No significant abnormality is seen within the arteries of the neck. Additional findings: Bfpnob-ca-Kyptea developmental anomalies Focal C5-C6 degenerative change Any quantitative measurements of stenosis were performed using NASCET criteria. Dictated by: Benito Doyle M.D. on 07/09/2023 at 16:47 Approved by: Benito Doyle M.D. on 07/09/2023 at 16:49
[2023-07-09 17:11] LABS: Add Manual Diff / Slide Review NO; Basophils Absolute Auto 100 /uL (0-100); Basophils Percent Auto 0.7 % (0-2); Eosinophils Absolute Auto 200 /uL (0-450); Eosinophils Percent Auto 1.9 % (2-4); Hematocrit 35.9 % (36-46); Lymphocytes Absolute Auto 1600 /uL (1100-4500); Lymphocytes Percent Auto 16.9 % (25-40); Mean Corpuscular HGB Conc 33.4 % (30-36); Mean Corpuscular Hemoglobin 31.7 PG (26-34); Mean Corpuscular Volume 94.8 fL (80-100); Monocytes Absolute Auto 500 /uL (0-900); Monocytes Percent Auto 5.5 % (3-14); Neutrophils Absolute Auto 7200 /uL (1500-7000); Platelet Count 214 X10^3/uL (150-400); Red Blood Cell Count 3.79 X10^6/uL (4.0-5.2); Red Cell Distribution Width 13.3 % (11.6-14.8); White Blood Cell Count 9.7 X10^3/uL (4.5-11.0)
[2023-07-09 17:16] LABS: Alanine Aminotransferase 11 IU/L (<35); Albumin 4.8 g/dL (3.5-5.0); Albumin Globulin Ratio 1.7 (1.0-2.8); Alkaline Phosphatase 73 U/L (38-126); Aspartate Aminotransferase 23 IU/L (14-36); BUN Creatinine Ratio 26.1 (6-22); Bilirubin Total 0.7 mg/dL (0.2-1.3); Blood Urea Nitrogen 29 mg/dL (7-17); Calcium 9.3 mg/dL (8.4-10.2); Carbon Dioxide 24 mmol/L (22-32); Chloride 106 mmol/L (98-107); Creatine Kinase 63 U/L (30-135); Estimated Glomerular Filt Rate 48 mL/min (>60); Globulin 2.9 g/dL (1.7-4.1); Glucose 109 mg/dL (80-110); HEMOLYSIS < 15 (0-50); Lactate (Lactic Acid) 0.7 mmol/L (0.7-2.1); Lipase 103 U/L (23-300); Potassium 4.5 mmol/L (3.4-5.1); Sodium 137 mmol/L (137-145); Total Protein 7.7 g/dL (6.3-8.2)
[2023-07-09 17:28] LABS: Troponin I < 0.012 ng/mL (0.01-0.034)
[2023-07-09 17:32] LABS: Procalcitonin 0.07 ng/mL (<0.5)
--- NOTE | 2023-07-09 17:45 | ED_ITS ---
HPI - Neuro Symptoms/Deficit General Chief Complaint: Neuro Symptoms/Deficit Stated Complaint: headache Time Seen by Provider: 07/09/23 16:59 Source: patient and family Mode of arrival: Family Vehicle History of Present Illness HPI Narrative: Patient is a 88-year-old female history of memory impairment, brain aneurysm with coil placed, pulmonary embolism, CA, atrial fibrillation on aspirin, hyperlipidemia, hypertension presenting today with severe headache. She lives in [facility] but visits her family once a week. She stays with them she is very familiar with the house but was confused about where she was. She then at 1:45 a.m. started complaining of worst headache of her life. It is in her forehead she seems to be sensitive to light and noise. No nausea or vomiting no numbness tingling or weakness. She has not had any sort of fever or chills. She was doing well yesterday as far as family knows. Denies any chest pain or shortness of breath really complaining of headache only. On Anticoagulants: No (81mg ASA daily) Related Data Home Medications Medication Instructions Recorded Confirmed polyethylene glycol 3350 17 See Rx Instructions .Route 02/17/21 02/17/21 gram/dose oral powder (Miralax) .COMPLEX constipation Previous Rx's Medication Instructions Recorded aspirin 81 mg tablet,delayed 81 mg PO DAILY #60 tabs 02/21/21 release cefdinir 300 mg capsule 300 mg PO BID #6 caps 02/21/21 dexamethasone 4 mg tablet 4 mg PO BIDWM #6 tabs 02/21/21 niacin 500 mg tablet 500 mg PO DAILY #60 tabs 02/21/21 omega-3 fatty acids-fish oil 340 1 cap PO DAILY #60 caps 02/21/21 mg-1,000 mg capsule (Fish Oil) cephalexin 500 mg capsule 500 mg PO BID 5 days #10 caps 07/09/23 Allergies Allergy/AdvReac Type Severity Reaction Status Date / Time codeine AdvReac Mild Vomiting Verified 02/18/21 14:42 Any pain medicine AdvReac Intermediate Nausea Uncoded 07/09/23 18:01 Review of Systems Hematologic/Lymphatic On Anticoagulants: No (81mg ASA daily) Patient History Medical History Brain aneurysm History of hypertension History of hyperlipidemia History of atrial fibrillation History of pulmonary embolus (PE) History of myocardial infarction Surgical History 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 History of knee replacement History of cholecystectomy Family History Mother Bipolar 1 disorder Father Cancer Sister Cancer Social History household members: other Smoking Status: Never smoker alcohol intake: never Smoking Status: Never smoker Substance Use Type: does not use Exam Initial Vital Signs Initial Vital Signs: Vital Signs Temperature 97.6 F 07/09/23 16:39 Pulse Rate 66 07/09/23 16:39 Respiratory Rate 16 07/09/23 16:39 Blood Pressure 158/72 H 07/09/23 16:39 Pulse Oximetry 98 07/09/23 16:39 Oxygen Delivery Method Room Air 07/09/23 16:39 GENERAL: Alert 88-year-old female appears in pain HEENT: Head atraumatic,EOMI, pupils reactive, face symmetric, moist mucous membranes CARDIOVASCULAR: Regular rate and rhythm without murmurs, rubs or gallops. RESPIRATORY: Breath sounds equal bilaterally, no wheezes rales or rhonchi. ABDOMEN: Soft, nontender. Normoactive bowel sounds all 4 quadrants. No guarding or rebound. EXTREMITIES: Normal range of motion, no clubbing or edema. Neurovascularly intact NEUROLOGICAL: Alert and oriented x4.Normal gait and speech. Cranial nerves II through XII grossly intact. Ste[place]man strength equal bilaterally good yompvd-rb-svji SKIN: Warm, dry, no laceration, no petechiae, no rashes or lesions. Course Orders Ordered: Discontinued Medications Cefazolin Sodium (Cephalexin 250 Mg Cap Prepack) 1 bottle MISC DIRECTED ONE Stop: 07/09/23 19:37 Last Admin: 07/09/23 19:43 Dose: 1 bottle Documented By: RIKY Sodium Chloride (Normal Saline 0.9%) 1,000 mls @ 150 mls/hr IV CONT YUMIKO Last Infusion: 07/09/23 19:49 Dose: Infused Documented By: Admin: 07/09/23 17:51 Dose: 150 mls/hr Documented By: MAGUI Sodium Chloride (Normal Saline 0.9%) 1,000 mls @ 150 mls/hr IV CONT YUMIKO Last Admin: 07/09/23 18:46 Dose: Not Given Documented By: MAGUI Morphine Sulfate (Morphine 2 Mg/Ml Inj) 2 mg IV NOW ONE Stop: 07/09/23 17:45 Last Admin: 07/09/23 18:45 Dose: Not Given Documented By: MAGUI Ondansetron HCl (Ondansetron 4 Mg/2 Ml Inj) 4 mg IV NOW ONE Stop: 07/09/23 17:45 Last Admin: 07/09/23 18:45 Dose: Not Given Documented By: MAGUI Vital Signs Vital signs: Vital Signs - 8 hr 07/09/23 16:39 07/09/23 17:59 07/09/23 18:00 Temperature 97.6 F Pulse Rate 66 65 65 Respiratory Rate 16 13 19 Blood Pressure 158/72 H Pulse Oximetry 98 98 97 Oxygen Delivery Method Room Air 07/09/23 18:10 07/09/23 18:10 Temperature Pulse Rate 63 Respiratory Rate 16 Blood Pressure 157/70 H Pulse Oximetry 97 Oxygen Delivery Method Room Air MDM - Neuro Symptoms/Deficit Lab Data 07/09/23 17:00 07/09/23 17:00 Labs: Lab Results 07/09/23 07/09/23 07/09/23 Range/Units 17:00 18:05 19:19 WBC 9.7 (4.5-11.0) X10^3/uL RBC 3.79 L (4.0-5.2) X10^6/uL Hgb 12.0 (12.0-16.0) g/dL Hct 35.9 L (36-46) % MCV 94.8 (80-100) fL MCH 31.7 (26-34) PG MCHC 33.4 (30-36) % RDW 13.3 (11.6-14.8) % Plt Count 214 (150-400) X10^3/uL Neut % (Auto) 75.0 (50-75) % Lymph % (Auto) 16.9 L (25-40) % [place] % (Auto) 5.5 (3-14) % Eos % (Auto) 1.9 L (2-4) % Baso % (Auto) 0.7 (0-2) % Neut # (Auto) 7200 H (6621-2882) /uL Lymph # (Auto) 1600 (0867-7214) /uL [place] # (Auto) 500 (0-900) /uL Eos # (Auto) 200 (0-450) /uL Baso # (Auto) 100 (0-100) /uL Sodium 137 (137-145) mmol/L Potassium 4.5 (3.4-5.1) mmol/L Chloride 106 (98-107) mmol/L Carbon Dioxide 24 (22-32) mmol/L BUN 29 H (7-17) mg/dL Creatinine 1.11 H (0.52-1.04) mg/dL Estimated GFR 48 L (>60) mL/min BUN/Creatinine Ratio 26.1 H (6-22) Glucose 109 (80-110) mg/dL Lactate 0.7 (0.7-2.1) mmol/L Calcium 9.3 (8.4-10.2) mg/dL Total Bilirubin 0.7 (0.2-1.3) mg/dL AST 23 (14-36) IU/L ALT 11 (<35) IU/L Alkaline Phosphatase 73 (38-126) U/L Total Creatine Kinase 63 (30-135) U/L Troponin I < 0.012 (0.01-0.034) ng/mL Total Protein 7.7 (6.3-8.2) g/dL Albumin 4.8 (3.5-5.0) g/dL Globulin 2.9 (1.7-4.1) g/dL Albumin/Globulin Ratio 1.7 (1.0-2.8) Lipase 103 (23-300) U/L Procalcitonin 0.07 (<0.5) ng/mL Urine RBC 10-30/hpf H (0-5/HPF) Urine WBC 1-5/hpf (0-5/HPF) Ur Squamous Epith Cells None seen (0-5/HPF) Urine Bacteria None seen (None) Ur Culture Indicated? Specimen cultured Vol Urine Centrifuged 10ml (spun) Chlamy pneumoniae PCR Not detected (Not Detect) Adenovirus (PCR) Not detected (Not Detect) B.parapertussis DNA PCR Not detected (Not Detecte) Coronavirus OC43 (PCR) Not detected (Not Detect) Coronavirus HKU1 (PCR) Not detected (Not Detect) Coronavirus 229E (PCR) Not detected (Not Detect) SARS-CoV-2 (PCR) Not detected (Not Detecte) Coronavirus NL63 (PCR) Not detected (Not Detect) Human Metapneumovir PCR Not detected (Not Detect) Influenza Type A (PCR) Not detected (Not Detect) Influenza Type B (PCR) Not detected (Not Detect) M. pneumoniae (PCR) Not detected (Not Detect) Parainfluenza 1 (PCR) Not detected (Not Detect) Parainfluenza 2 (PCR) Not detected (Not Detect) Parainfluenza 3 (PCR) Not detected (Not Detect) Parainfluenza 4 (PCR) Not detected (Not Detect) RSV (PCR) Not detected (Not Detect) Entero/Rhino (PCR) Not detected (Not Detect) Urine Dip Bedside Urine Glucose Negative Bedside Urine Bilirubin - Negative Bedside Urine Ketone +/- 5 Urine Specific [place] 1.015 Bedside Urine Occult Blood +++ Bedside Urine pH 5.5 Bedside Urine Protein - Negative Bedside Urine Urobilinogen - Negative Bedside Urine Nitrite - Negative Bedside Urine Leukocytes + 70 Esterase Imaging Data Chest x-ray: Radiologist's Impression: PROCEDURE: XR CHEST 1V INDICATIONS: chest pain TECHNIQUE: One view of the chest was acquired. COMPARISON: [facility], CT, CT ANGIO HEAD AND NECK, 07/09/2023, 17:10. [facility], CT, CT HEAD/BRAIN WO CON, 07/09/2023, 17:10. [facility], CR, XR CHEST 1V, 03/31/2021, 14:28. FINDINGS: Surgical changes and devices: None. Lungs and pleura: Mild generalized interstitial prominence can be seen. On this semiupright portable chest examination, no large pneumothorax or large pleural effusions are seen. No focal infiltrates are seen. Mediastinum: Mediastinal contours appear normal. Heart size is mildly enlarged. Bones and chest wall: No suspicious bony lesions. Overlying soft tissues appear unremarkable. IMPRESSION: Mild cardiomegaly and interstitial prominence. Mild CHF is suspected. Dictated by: Benito Doyle M.D. on 07/09/2023 at 16:44 CT scan - head: Radiologist's Impression: PROCEDURE: CT HEAD/BRAIN WO CON INDICATIONS: confusion TECHNIQUE: Noncontrast 4.5 mm thick angled axial sections acquired from the foramen magnum to the vertex, with coronal and sagittal reformats. For radiation dose reduction, the following was used: automated exposure control, adjustment of mA and/or kV according to patient size. COMPARISON: [facility], CT, CT HEAD/BRAIN WO CON, 02/16/2021, 20:37. [facility], CT, CT ANGIO HEAD AND NECK, 07/09/2023, 17:10. [facility], CR, XR CHEST 1V, 07/09/2023, 17:05. [facility], CT, CT HEAD/BRAIN WO CON, 03/31/2021, 17:27. FINDINGS: Image quality: There is artifact associated with the metallic hardware. Artifact from the metallic hardware is reduced by metal reconstruction algorithm. CSF spaces: Basal cisterns are patent. No extra-axial fluid collections. The ventricles are symmetric in size and shape. Brain: Prior aneurysm coils can be seen within the left carotid terminus region. No intracranial bleeds or masses. There is cerebral volume loss for age, with resultant ventricular and sulcal prominence. There are periventricular and deep white matter chronic small vessel ischemic changes. There is intracranial internal carotid artery atherosclerosis. Skull and face: Calvarium and visualized facial bones appear intact, without suspicious lesions. Sinuses: Visualized sinuses and mastoids are clear. IMPRESSION: No acute intracranial hemorrhage is seen. No acute intracranial pathology. Prior aneurysm coils seen involving the left carotid terminus region. Dictated by: Benito Doyle M.D. on 07/09/2023 at 16:45 CTA - brain/neck: Radiologist's Impression: PROCEDURE: CT ANGIO HEAD AND NECK INDICATIONS: confusion TECHNIQUE: After the administration of intravenous contrast, 1 mm thick sections acquired from the aortic arch through the [place]. 3-dimensional rtzcgpb-bmuqjvyyg-ztmhptzbec (MIP) and/or volume rendering reformats were acquired of the central intracranial vasculature and neck separately. For radiation dose reduction, the following was used: automated exposure control, adjustment of mA and/or kV according to patient size. COMPARISON: [facility], CT, CT HEAD/BRAIN WO CON, 02/16/2021, 20:37. [facility], CT, CT HEAD/BRAIN WO CON, 03/31/2021, 17:27. [facility], CT, CT HEAD/BRAIN WO CON, 07/09/2023, 17:10. FINDINGS: Image quality: There is artifact associated with the metallic hardware. Artifact from the metallic hardware is reduced by metal reconstruction algorithm. BRAIN: CSF spaces: Ventricles are normal in size and shape. Basal cisterns are patent. No extra-axial fluid collections. Brain: No significant abnormality of the brain can be seen. Skull and face: Calvarium and facial bones appear intact, without suspicious lesions. Orbits appear normal. Sinuses: Sinuses and mastoids are clear. HEAD CT ANGIOGRAPHY: Anterior circulation: Prior aneurysm coils can be seen within the left carotid terminus region. No recurrent aneurysm can be seen. Intracranial internal carotid arteries are normal in size and flow. The flow within the paired anterior cerebral arteries is normal and symmetric. The flow within the middle cerebral arteries is normal and symmetric. The anterior communicating artery is seen. No aneurysms are seen. Posterior circulation: Visualized portions of the vertebral arteries demonstrate normal caliber, and join to form a normal appearing basilar artery. There is a prominent right posterior communicating artery seen, with an accompanying diminutive right P1 segment. This is attributed to a type origin of the right posterior cerebral artery, which is considered to be a normal developmental variant of typically no clinical consequence. The flow within the posterior cerebral arteries is normal and symmetric. No aneurysms are seen. NECK CT ANGIOGRAPHY: Carotid system: The great vessels demonstrate a conventional anatomy as they arise from the aortic arch. The origins of the common carotid arteries appear patent. The common carotid arteries demonstrate normal caliber and courses. The bifurcation regions demonstrate no significant stenosis. The internal carotid arteries demonstrate normal calibers and courses. Posterior circulation: The origins of the vertebral arteries both appear widely patent. The more superior extracranial portions of both vertebral arteries also demonstrate normal courses and calibers. They join to form a normal appearing basilar artery. Soft tissues: Visualized neck soft tissues demonstrate no suspicious abnormalities. Bones: No suspicious bony lesions. Visualized cervical spine appears normally aligned. Moderate focal degenerative change can be seen at the C5-C6 level, with milder degenerative changes seen elsewhere. IMPRESSION: No significant intracranial abnormality is identified. Note is made of prior left carotid terminus aneurysm coils, without a recurrent aneurysm seen. No significant abnormality is seen within the arteries of the neck. Additional findings: Mrisjt-bz-Eunqgf developmental anomalies Focal C5-C6 degenerative change Any quantitative measurements of stenosis were performed using NASCET criteria. Dictated by: Benito Doyle M.D. on 07/09/2023 at 16:47 ECG Data Interpretation: sinus rhythm rate 62 NH interval 166 QRS [address] changes T-wave inversion noted in lead 3 only similar to previous EKGs MDM Narrative Medical decision making narrative: MDM CC: Headache confusion Complicating co-morbidities: Memory impairment and I brain aneurysm with coil Corroborating data: [ ] Data collected from: Family Medical records reviewed: Previous ED visits Differential considered: Subarachnoid hemorrhage, stroke, sepsis, infection Exam documented above, pertinent findings include: Appears in pain but no focal deficits Lab Test results independently reviewed as above. Pertinent findings: Normal WBC electrolyte abnormality, creatinine 1.1 previous 0.9 respiratory panel negative. Urinalysis does show leukocytes and hematuria she does get UTI Independently reviewed EKG as above: Sinus rhythm with no ischemia Imaging studies independently reviewed: CT head CT head and neck angio no acute intracranial hemorrhage no new aneurysm coil in place, chest x-ray mild CHF Consultations: None Treatments: IV fluids offered pain medicine morphine but declined Re-evaluations: Pain is improving Discussion: Patient presents today with worse headache of her life headache has improved without any sort of intervention blood pressure has improved. She did show some worsening confusion today she is some mild memory impairment but confusion was a little worse now seems better. She does have leukocytes and hematuria she does get frequent UTIs. Seems reasonable to start her on antibiotics. We discussed for calm plate rule out of subarachnoid hemorrhage she would need a lumbar puncture however with improving headache without any sort of intervention I low suspicion along negative noncontrast head CT and negative CT angio a suspect low risk for subarachnoid hemorrhage She has no evidence of sepsis significant fever hypotension or leukocytosis reasonable to treat for UTIs outpatient Discharge Plan Departure Patient Disposition: Home Clinical Impression: Headache, Acute UTI Instructions: DI for Urinary Tract Infection (UTI), DI for Headache Activity Restrictions/Additional Instructions: *You have been diagnosed with severe headache, UTI *What to do: At this time go home and rest you do likely have minor UTI, please stay hydrated *Continue to take medications as directed Tylenol 650 mg every 4 hours for ogdv-qe-hqzcoaql pain Keflex 500 mg twice daily for 5 days *Follow up with your primary care provider in 2-3 days or call [phone] *Return to ER if you should have increasing headache confusion shortness of breath or any new, worsening or concerning symptoms Prescriptions: New cephalexin 500 mg capsule 500 mg PO BID 5 Days Qty: 10 0RF No Action polyethylene glycol 3350 [Miralax] 17 gram/dose Powder See Rx Instructions .ROUTE .COMPLEX Rx Instructions: Pt normally takes it at 0600 aspirin 81 mg Tablet,Delayed Release (Dr/Ec) 81 mg PO DAILY Qty: 60 0RF dexamethasone 4 mg Tablet 4 mg PO BIDWM Qty: 6 0RF niacin 500 mg Tablet 500 mg PO DAILY Qty: 60 0RF cefdinir 300 mg Capsule 300 mg PO BID Qty: 6 0RF Fish Oil 340-1,000 mg Capsule 1 cap PO DAILY Qty: 60 0RF Stand Alone Forms: Patient Portal/API
[2023-07-09] MEDS: SODIUM CHLORIDE 0.9% 1,000 ML 150 ML IV (17:51)
[2023-07-09 19:06] LABS: Adenovirus Not Detected (Not Detect); B. parapertussis Not Detected (Not Detecte); Bordetella pertussis Not Detected (Not Detect); Chlamydophila pneumoniae Not Detected (Not Detect); Coronavirus 229E Not Detected (Not Detect); Coronavirus HKU1 Not Detected (Not Detect); Coronavirus NL 63 Not Detected (Not Detect); Coronavirus OC43 Not Detected (Not Detect); Human Metapneumovirus Not Detected (Not Detect); Human Rhinovirus/Enterovirus Not Detected (Not Detect); Influenza A Not Detected (Not Detect); Influenza B Not Detected (Not Detect); Mycoplasma pneumoniae Not Detected (Not Detect); Parainfluenza Virus 1 Not Detected (Not Detect); Parainfluenza Virus 2 Not Detected (Not Detect); Parainfluenza Virus 3 Not Detected (Not Detect); Parainfluenza Virus 4 Not Detected (Not Detect); Respiratory Syncytial Virus Not Detected (Not Detect); SARS- CoV-2 Not Detected (Not Detecte)
[2023-07-09] MEDS: cephALEXin 250 MG CAP PREPACK 1 BOTTLE MISC (19:43)
[2023-07-09 20:01] LABS: Bacteria Urine None Seen; RBC Urine 10-30/HPF (0-5/HPF); Urine Volume 10mL (spun)
[2023-07-09 20:02] LABS: Culture Indicated Urine Specimen Cultured; Squamous Epithelial Cell Urine None Seen (0-5/HPF); WBC Urine 1-5/HPF (0-5/HPF)
== END 2023-07-09 19:46 | disposition home or self-care (01) ==
PROVIDERS: Emergency Provider Emergency Medicine
DX: R51.9 Headache, unspecified (principal); N39.0 Urinary tract infection, site not specified; R07.9 Chest pain, unspecified; I10 Essential (primary) hypertension; I25.2 Old myocardial infarction; Z20.822 Contact with and (suspected) exposure to COVID-19
CPT/HCPCS: 36415; 70450; 70496; 70498; 71045; 80053; 81003; 81015; 82550; 83605; 83690; 84145; 84484; 85025; 87040; 87086; 87633; 93005; 96360; 96361; 99284; J2270; J2405; Q9967

== ENCOUNTER 2024-03-10 00:32 | Emergency (ER) | payer OTHER, SELFPAY ==
[2021-02-16 23:00] VITALS: BMI 25.6
[2024-03-10 00:42] VITALS: BP 150/88; PULSE 67; RESP 16; TEMP 36.4; O2SAT 99; BMI 24.9
--- NOTE | 2024-03-10 00:48 | DI.US.S_ITS ---
PROCEDURE: US PERIPH VENOUS LOW EXTREM LT INDICATIONS: Pain and swelling to left calf TECHNIQUE: Real-time imaging, as well as color and pulse Doppler interrogation, were performed of the lower extremity deep veins from the inguinal ligament to the popliteal fossa, with documentation of the visualized calf veins. COMPARISON: None. FINDINGS: The common femoral, femoral, popliteal, and the visualized calf veins are normally compressible, and free of intraluminal thrombus. Color and pulse Doppler demonstrate normal phasic intraluminal flow. There is normal augmentation response to distal compression maneuver. IMPRESSION: No findings of lower extremity deep venous thrombosis. Agree with preliminary report. Dictated by: Alonso Burnham M.D. on 03/10/2024 at 8:23 Approved by: Alonso Burnham M.D. on 03/10/2024 at 8:25
[2024-03-10 01:45] LABS: INR 0.9 (0.9-1.3); Prothrombin Time 10.6 SECONDS (9.4-12.5)
[2024-03-10 01:48] LABS: Add Manual Diff / Slide Review NO; Alanine Aminotransferase 15 IU/L (<35); Albumin 4.2 g/dL (3.5-5.0); Albumin Globulin Ratio 1.4 (1.0-2.8); Alkaline Phosphatase 70 U/L (38-126); Aspartate Aminotransferase 25 IU/L (14-36); BUN Creatinine Ratio 22.9 (6-22); Basophils Absolute Auto 100 /uL (0-100); Bilirubin Total 0.5 mg/dL (0.2-1.3); Blood Urea Nitrogen 25 mg/dL (7-17); Calcium 9.4 mg/dL (8.4-10.2); Carbon Dioxide 21 mmol/L (22-32); Chloride 107 mmol/L (98-107); Eosinophils Absolute Auto 300 /uL (0-450); Eosinophils Percent Auto 3.6 % (2-4); Estimated Glomerular Filt Rate 49 mL/min (>60); Globulin 3.1 g/dL (1.7-4.1); Glucose 108 mg/dL (80-110); HEMOLYSIS 31 (0-50); Hematocrit 33.7 % (36-46); Hemoglobin 11.4 g/dL (12.0-16.0); Lymphocytes Absolute Auto 1900 /uL (1100-4500); Lymphocytes Percent Auto 25.7 % (25-40); Mean Corpuscular HGB Conc 33.9 % (30-36); Mean Corpuscular Hemoglobin 32.5 PG (26-34); Mean Corpuscular Volume 95.9 fL (80-100); Monocytes Absolute Auto 600 /uL (0-900); Monocytes Percent Auto 7.8 % (3-14); Neutrophils Absolute Auto 4600 /uL (1500-7000); Neutrophils Percent Auto 61.9 % (50-75); Platelet Count 218 X10^3/uL (150-400); Potassium 4.5 mmol/L (3.4-5.1); Red Blood Cell Count 3.52 X10^6/uL (4.0-5.2); Red Cell Distribution Width 13.1 % (11.6-14.8); Sodium 135 mmol/L (137-145); Total Protein 7.3 g/dL (6.3-8.2); White Blood Cell Count 7.4 X10^3/uL (4.5-11.0)
--- NOTE | 2024-03-10 03:56 | ED.EXTPRO ---
HPI - Extremity Problem General Chief complaint: Extremity Problem,Nontraumatic Stated complaint: POSSIBLE STROKE Time Seen by Provider: 03/10/24 03:56 Source: patient and family Mode of arrival: Wheelchair History of Present Illness HPI Narrative: 88-year-old female complains of left posterior foreleg/knee area discomfort, no specific injury or new activity recalled, worse pain with movement of the knee, or with movement of the ankle/foot. No history of DVTs. No swelling of the foreleg recalled. No history of prior blood clots. Related Data Home Medications Medication Instructions Recorded Confirmed polyethylene glycol 3350 17 See Rx Instructions .Route 02/17/21 02/17/21 gram/dose oral powder (Miralax) .COMPLEX constipation Previous Rx's Medication Instructions Recorded aspirin 81 mg tablet,delayed 81 mg PO DAILY #60 tabs 02/21/21 release cefdinir 300 mg capsule 300 mg PO BID #6 caps 02/21/21 dexamethasone 4 mg tablet 4 mg PO BIDWM #6 tabs 02/21/21 niacin 500 mg tablet 500 mg PO DAILY #60 tabs 02/21/21 omega-3 fatty acids-fish oil 340 1 cap PO DAILY #60 caps 02/21/21 mg-1,000 mg capsule (Fish Oil) Allergies Allergy/AdvReac Type Severity Reaction Status Date / Time codeine AdvReac Mild Vomiting Verified 02/18/21 14:42 Any pain medicine AdvReac Intermediate Nausea Uncoded 07/09/23 18:01 Patient History Medical History Brain aneurysm History of hypertension History of hyperlipidemia History of atrial fibrillation History of pulmonary embolus (PE) History of myocardial infarction Surgical History 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 HEAD: Atraumatic. Normocephalic. EYES: Pupils equal round and reactive. Extraocular motions intact. No scleral icterus. No injection or drainage. ENT: Nose without bleeding, purulent drainage. Throat without erythema, tonsillar hypertrophy or exudate. Airway patent. NECK: Trachea midline. Non tender CARDIOVASCULAR: Regular rate and rhythm without murmurs, gallops, or rubs. RESPIRATORY: Clear to auscultation. Breath sounds equal bilaterally. No wheezes, rales, or rhonchi. GASTROINTESTINAL: Abdomen soft, non-tender, nondistended. EXTREMITIES: Left knee without obvious deformity, no medial or lateral joint line tenderness, no tenderness around the patella or along the patellar tendon or its insertion. No tenderness proximal to the quadriceps distal musculature. Some tenderness posterior right medial popliteal region, without swelling or redness to the skin, possibly in the gastrocnemius origin. No distal foreleg tenderness or swelling, no tenderness of the right foot or ankle. Ankle flexion and extension causes pain in the same proximal gastroc origin region. BACK: Nontender without deformity or crepitance. No flank tenderness. NEURO: AOx3. Motor functions grossly nonfocal SKIN: No rash or erythema of visible areas Initial Vital Signs Initial Vital Signs: Vital Signs Temperature 97.6 F 03/10/24 00:42 Pulse Rate 67 03/10/24 00:42 Respiratory Rate 16 03/10/24 00:42 Blood Pressure 150/88 H 03/10/24 00:42 Pulse Oximetry 99 03/10/24 00:42 Oxygen Delivery Method Room Air 03/10/24 00:42 Course Orders Ordered: ED Orders 03/10/24 00:48 US periph venous low extrem lt Stat 03/10/24 01:30 Complete Blood Count AUTO DIFF Stat Comprehensive Metabolic Panel Stat Prothrombin Time INR Stat Discontinued Medications Acetaminophen (Acetaminophen 325 Mg Tablet) 975 mg PO NOW ONE Stop: 03/10/24 04:36 Last Admin: 03/10/24 04:42 Dose: 975 mg Documented By: HNG Vital Signs Vital signs: Vital Signs - 8 hr 03/10/24 00:42 03/10/24 04:24 Temperature 97.6 F Pulse Rate 67 65 Respiratory Rate 16 18 Blood Pressure 150/88 H 142/64 H Pulse Oximetry 99 98 Oxygen Delivery Method Room Air Room Air MDM - Extremity (Nontraumatic) Lab Data 03/10/24 01:30 03/10/24 01:30 Labs: Lab Results 03/10/24 Range/Units 01:30 WBC 7.4 (4.5-11.0) X10^3/uL RBC 3.52 L (4.0-5.2) X10^6/uL Hgb 11.4 L (12.0-16.0) g/dL Hct 33.7 L (36-46) % MCV 95.9 (80-100) fL MCH 32.5 (26-34) PG MCHC 33.9 (30-36) % RDW 13.1 (11.6-14.8) % Plt Count 218 (150-400) X10^3/uL Neut % (Auto) 61.9 (50-75) % Lymph % (Auto) 25.7 (25-40) % [place] % (Auto) 7.8 (3-14) % Eos % (Auto) 3.6 (2-4) % Baso % (Auto) 1.0 (0-2) % Neut # (Auto) 4600 (8625-9798) /uL Lymph # (Auto) 1900 (9887-1017) /uL [place] # (Auto) 600 (0-900) /uL Eos # (Auto) 300 (0-450) /uL Baso # (Auto) 100 (0-100) /uL PT 10.6 (9.4-12.5) SECONDS INR 0.9 (0.9-1.3) Sodium 135 L (137-145) mmol/L Potassium 4.5 (3.4-5.1) mmol/L Chloride 107 (98-107) mmol/L Carbon Dioxide 21 L (22-32) mmol/L BUN 25 H (7-17) mg/dL Creatinine 1.09 H (0.52-1.04) mg/dL Estimated GFR 49 L (>60) mL/min BUN/Creatinine Ratio 22.9 H (6-22) Glucose 108 (80-110) mg/dL Calcium 9.4 (8.4-10.2) mg/dL Total Bilirubin 0.5 (0.2-1.3) mg/dL AST 25 (14-36) IU/L ALT 15 (<35) IU/L Alkaline Phosphatase 70 (38-126) U/L Total Protein 7.3 (6.3-8.2) g/dL Albumin 4.2 (3.5-5.0) g/dL Globulin 3.1 (1.7-4.1) g/dL Albumin/Globulin Ratio 1.4 (1.0-2.8) MDM Narrative Medical decision making narrative: 88-year-old female with atraumatic left knee pain posteriorly, no history of DVT known. Ultrasound venous Doppler study was ordered from triage, results pending. Examination seems more consistent with gastrocnemius strain/tear, if not popliteal cyst. Symptoms are worse with flexion-extension of the ankle. Less likely DVT but possible. Ultrasound results pending. Right lower extremity venous Doppler. Impressions: ?No evidence of deep vein thrombosis in the right lower extremity.? See tele radiology report. No mention of any Quiros's/popliteal cyst. Trial of immobilization in case of gastrocnemius muscle origin injury. Left posterior long leg splint. Then trial with walker if tolerated, might need wheelchair for discharge. Splint placed, good condition, tolerated walker trial well, DC Home with family, recheck advised with PCP early next week, return precautions discussed Discharge Plan Departure Patient Disposition: Home Clinical Impression: Gastrocnemius strain, left Activity Restrictions/Additional Instructions: Nontraumatic left posterior knee pain. At triage there was some concern about possible deep vein thrombosis, ultrasound vascular study was ordered, no deep vein thrombosis was confirmed on ultrasound, and no incidental mention of any popliteal/Quiros's posterior cyst structure. On examination you have some tenderness to the origin of the left gastrocnemius muscle, possible strain or tear of this muscle. Trial of immobilization with long leg splint, with use of walker. Keep splint in place, recheck with your regular doctor or with Orthopedic surgery on Tuesday after this weekend. Take Tylenol as needed for pain control. Recheck earlier this/nearest emergency department for any change worsening symptoms or any concerns prior Prescriptions: No Action polyethylene glycol 3350 [Miralax] 17 gram/dose Powder See Rx Instructions .ROUTE .COMPLEX Rx Instructions: Pt normally takes it at 0600 aspirin 81 mg Tablet,Delayed Release (Dr/Ec) 81 mg PO DAILY Qty: 60 0RF dexamethasone 4 mg Tablet 4 mg PO BIDWM Qty: 6 0RF niacin 500 mg Tablet 500 mg PO DAILY Qty: 60 0RF cefdinir 300 mg Capsule 300 mg PO BID Qty: 6 0RF Fish Oil 340-1,000 mg Capsule 1 cap PO DAILY Qty: 60 0RF Referrals: Heide Pavon [Other] Nubia Gomez MD [Physician] - Stand Alone Forms: Patient Portal/API/Survey
[2024-03-10 04:24] VITALS: BP 142/64; PULSE 65; RESP 18; O2SAT 98
[2024-03-10] MEDS: ACETAMINOPHEN 325 MG TABLET 975 MG PO (04:42)
== END 2024-03-10 06:15 | disposition home or self-care (01) ==
PROVIDERS: Emergency Provider Emergency Medicine
DX: S86.112A Strain of other muscle(s) and tendon(s) of posterior muscle group at lower leg level, left leg, initial encounter (principal); X58.XXXA Exposure to other specified factors, initial encounter; Z79.82 Long term (current) use of aspirin
CPT/HCPCS: 29505; 80053; 85025; 85610; 93971; 99283; 99284

== ENCOUNTER 2024-03-12 11:35 | Emergency (ER) | payer OTHER, SELFPAY ==
[2021-02-16 23:00] VITALS: BMI 25.6
[2024-03-12 11:39] VITALS: BP 136/62; PULSE 79; RESP 18; TEMP 36.6; O2SAT 99; BMI 24.9
--- NOTE | 2024-03-12 13:07 | PC.NURSE ---
Patient was assisted with ambulation; she was steady on her feet and reported no pain with walking. Cleared for discharge.
[2024-03-12 13:28] VITALS: BP 134/62; PULSE 64; RESP 16; TEMP 36.4; O2SAT 99
--- NOTE | 2024-03-12 17:46 | ED.RECABL ---
HPI - Recheck/Abnormal Lab/Rx <Natty Muhammad PA-C - Last Filed: 03/12/24 17:51> General Chief Complaint: Recheck/Abnormal Lab/Rx Stated Complaint: wants brace taken off Time Seen by Provider: 03/12/24 11:52 History of Present Illness HPI narrative: 88-year-old female returns to the ED due to discomfort from the long leg splint that was applied in the ED 2 days ago. Patient was seen for left calf pain, diagnosed with a strain of the gastrocnemius, fitted with a left posterior long leg splint for a trial of immobilization. DVT study was negative. There was no trauma. Patient is here today because she is unable to ambulate and the splint is causing her more pain than she had originally. Patient called ortho, they will not be able to see her for a week at least. Patient has no new symptoms including no chest pain, shortness of breath. Related Data Home Medications Medication Instructions Recorded Confirmed polyethylene glycol 3350 17 See Rx Instructions .Route 02/17/21 02/17/21 gram/dose oral powder (Miralax) .COMPLEX constipation Previous Rx's Medication Instructions Recorded aspirin 81 mg tablet,delayed 81 mg PO DAILY #60 tabs 02/21/21 release cefdinir 300 mg capsule 300 mg PO BID #6 caps 02/21/21 dexamethasone 4 mg tablet 4 mg PO BIDWM #6 tabs 02/21/21 niacin 500 mg tablet 500 mg PO DAILY #60 tabs 02/21/21 omega-3 fatty acids-fish oil 340 1 cap PO DAILY #60 caps 02/21/21 mg-1,000 mg capsule (Fish Oil) Allergies Allergy/AdvReac Type Severity Reaction Status Date / Time codeine AdvReac Mild Vomiting Verified 02/18/21 14:42 Any pain medicine AdvReac Intermediate Nausea Uncoded 07/09/23 18:01 Review of Systems <Natty Muhammad PA-C - Last Filed: 03/12/24 17:51> Constitutional Constitutional: Denies chills, Denies fatigue, Denies fever(s), Denies frequent falls, Denies lethargy and Denies weakness Eyes Eyes: Denies change in vision, Denies eye discharge, Denies irritation and Denies loss of vision ENT Ears, Nose, Mouth, and Throat: Denies change in voice, Denies dizziness, Denies neck pain, Denies sore throat and Denies throat swelling Cardiovascular Cardiovascular: Denies chest pain, Denies irregular heart rhythm, Denies lightheadedness, Denies palpitations, Denies dyspnea, Denies dyspnea on exertion and Denies orthopnea Respiratory Respiratory: Denies cough, Denies dyspnea, Denies dyspnea on exertion and Denies wheezing Gastrointestinal Gastrointestinal: Denies abdominal pain, Denies change in bowel habits, Denies diarrhea, Denies nausea and Denies vomiting Musculoskeletal Musculoskeletal: Denies neck pain and Denies numbness Comments: Left leg pain Integumentary/Breasts Skin/Breast: Denies pruritus, Denies erythema, Denies rash and Denies wounds Neurologic Neurologic: Denies behavioral changes, Denies confusion, Denies dizziness, Denies frequent falls, Denies loss of vision, Denies numbness and Denies weakness Psychiatric Psychiatric: Denies anxiety, Denies behavioral changes, Denies confusion, Denies depression, Denies homicidal ideation and Denies suicidal ideation Endocrine Endocrine: Denies fatigue, Denies flushing and Denies palpitations Hematologic/Lymphatic Hematologic/Lymphatic: Denies easy bruising Allergic/Immunologic Allergic/Immunologic: Denies urticaria, Denies throat swelling and Denies wheezing Patient History <Natty Muhammad PA-C - Last Filed: 03/12/24 17:51> Medical History Brain aneurysm History of hypertension History of hyperlipidemia History of atrial fibrillation History of pulmonary embolus (PE) History of myocardial infarction Surgical History 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 History of knee replacement History of cholecystectomy Family History Mother Bipolar 1 disorder Father Cancer Sister Cancer Social History household members: other Smoking Status: Never smoker alcohol intake: never Smoking Status: Never smoker Exam <Natty Muhammad PA-C - Last Filed: 03/12/24 17:51> Narrative Exam Narrative: Const General:?cooperative, healthy appearing and comfortable HENNH Head:?normal to inspection Ears:?hearing grossly normal bilaterally Nose:?external nose normal Face and sinus:?normal facial exam and sinuses nontender Mouth:?oral mucosae normal Throat:?posterior oropharynx normal Eyes General:?appearance normal, both eyes and all related structures Neck Neck:?normal visual inspection and no lymphadenopathy noted Resp Effort & Inspection:?normal respiratory effort Auscultation:?clear to auscultation bilaterally Cardio Rate:?regular rate Rhythm:?regular rhythm Musculoskeletal No tenderness to palpation, swelling, erythema noted on exam after the splint was removed. Patient is able to walk well and is pain-free after splint removal. Neurovascularly intact. Neuro General:?patient alert, patient awake and patient oriented x3 Initial Vital Signs Initial Vital Signs: Vital Signs Temperature 97.9 F 03/12/24 11:39 Pulse Rate 79 03/12/24 11:39 Respiratory Rate 18 03/12/24 11:39 Blood Pressure 136/62 03/12/24 11:39 Pulse Oximetry 99 03/12/24 11:39 Oxygen Delivery Method Room Air 03/12/24 11:39 <Wendy Giron DO - Last Filed: 03/12/24 18:57> Initial Vital Signs Initial Vital Signs: Vital Signs Temperature 97.9 F 03/12/24 11:39 Pulse Rate 79 03/12/24 11:39 Respiratory Rate 18 03/12/24 11:39 Blood Pressure 136/62 03/12/24 11:39 Pulse Oximetry 99 03/12/24 11:39 Oxygen Delivery Method Room Air 03/12/24 11:39 Course <Natty Muhammad PA-C - Last Filed: 03/12/24 17:51> Vital Signs Vital signs: Vital Signs - 8 hr 03/12/24 11:39 03/12/24 13:28 Temperature 97.9 F 97.5 F L Pulse Rate 79 64 Respiratory Rate 18 16 Blood Pressure 136/62 134/62 Pulse Oximetry 99 99 Oxygen Delivery Method Room Air Room Air <DO Alessandra Hogue Last Filed: 03/12/24 18:57> Vital Signs Vital signs: Vital Signs - 8 hr 03/12/24 11:39 03/12/24 13:28 Temperature 97.9 F 97.5 F L Pulse Rate 79 64 Respiratory Rate 18 16 Blood Pressure 136/62 134/62 Pulse Oximetry 99 99 Oxygen Delivery Method Room Air Room Air MDM - Recheck/Abnormal Lab/Rx <Natty Muhammad PA-C - Last Filed: 03/12/24 17:51> MDM Narrative Medical decision making narrative: 88-year-old female returns to the ED due to discomfort from the long leg splint that was applied in the ED 2 days ago. It was removed and a trial of ambulation was successful. Patient is able to walk per her baseline without pain. Recommend that patient follow-up with PCP and ortho as needed. ED return precautions were discussed with patient. Patient verbalized understanding. Medical records reviewed: Yes Discharge Plan Departure Patient Disposition: Home Clinical Impression: Gastrocnemius strain, left Qualifiers: Encounter type: subsequent encounter Qualified Code(s): S86.112D - Strain of other muscle(s) and tendon(s) of posterior muscle group at lower leg level, left leg, subsequent encounter Instructions: DI for Calf Muscle Strain Activity Restrictions/Additional Instructions: You were evaluated in the ED today for a calf muscle strain. Your splint was removed since it was causing you multiple issues including worsened pain, immobility. It is reassuring to note that you were able to walk well without any pain after the splint was removed. Please follow-up with your PCP as soon as possible. Return to the ED if you have any worsening symptoms. Prescriptions: No Action polyethylene glycol 3350 [Miralax] 17 gram/dose Powder See Rx Instructions .ROUTE .COMPLEX Rx Instructions: Pt normally takes it at 0600 aspirin 81 mg Tablet,Delayed Release (Dr/Ec) 81 mg PO DAILY Qty: 60 0RF dexamethasone 4 mg Tablet 4 mg PO BIDWM Qty: 6 0RF niacin 500 mg Tablet 500 mg PO DAILY Qty: 60 0RF cefdinir 300 mg Capsule 300 mg PO BID Qty: 6 0RF Fish Oil 340-1,000 mg Capsule 1 cap PO DAILY Qty: 60 0RF Referrals: Miscellaneous,Doctor, MD [Primary Care Provider] - Stand Alone Forms: Patient Portal/API/Survey ED Sign-out <Wendy Giron DO - Last Filed: 03/12/24 18:57> Cosign ED Attending Balbir Attestation: I was immediately available in the department for consultation.
== END 2024-03-12 13:29 | disposition home or self-care (01) ==
PROVIDERS: Emergency Provider Student in an Organized Health Care Education/Training Program
DX: S86.112D Strain of other muscle(s) and tendon(s) of posterior muscle group at lower leg level, left leg, subsequent encounter (principal); X58.XXXA Exposure to other specified factors, initial encounter
CPT/HCPCS: 99281